=== PATIENT | male | born 1990 | race Caucasian/White ===

== ENCOUNTER 2017-03-15 01:45 | Emergency (ER) | payer MEDICAID ==
[2017-03-15 01:56] VITALS: BP 127/54
[2017-03-15] MEDS ORDERED: LANTUS SOLOS100 U/M1 SQ (02:48)
[2017-03-15 02:52] LABS: BASOPHIL % 0.5 % (0-2); PLATELET COUNT 361 x10^3mcL (130-400); RED CELL DISTRIBUTION WIDTH 12.9 % (11.5-14.5)
[2017-03-15 03:04] LABS: ALBUMIN 3.8 g/dL (3.4-5.0); ALKALINE PHOSPHATASE 83 U/L (46-116); ALT/SGPT 36 U/L (16-63); AST/SGOT 25 U/L (15-37); BILIRUBIN TOTAL 2.5 mg/dL (0.20-1.00); CALCIUM 8.9 mg/dL (8.5-10.1); CHLORIDE SERUM 93 mmol/L (98-107); CREATININE SERUM 1.5 mg/dL (0.7-1.3); GFR1 > 60 mL/min; POTASSIUM SERUM 4.8 mmol/L (3.5-5.1); SODIUM SERUM 133 mmol/L (136-145); TOTAL PROTEIN, SERUM 7.1 g/dL (6.4-8.2)
[2017-03-15 03:06] LABS: GLUCOSE SERUM 621 mg/dL (74-106)
== END 2017-03-15 03:20 | disposition left against medical advice (07) ==
LOC: ED 01:45
PROVIDERS: Emergency Medicine
DX: F15.10 Other stimulant abuse, uncomplicated (principal); E11.65 Type 2 diabetes mellitus with hyperglycemia; F17.210 Nicotine dependence, cigarettes, uncomplicated; Z71.6 Tobacco abuse counseling
CPT/HCPCS: 82962; 99406; J2060; J7030; Q0092

== ENCOUNTER 2017-03-15 07:13 | Inpatient (IN) | payer MEDICAID ==
[~2017-03-15] VITALS: Ht 180.3 cm; Wt 86.7 kg
[~2017-03-15 07:13] MED LIST: LANTUS SOLOS100 U/M1 SQ
--- NOTE | 2017-03-15 08:13 | NUR ---
PT BIB MEDICS DUE TO HIGH BG. MEDICS STATE PATIENT REPORTED BG IN 500'S YESTERDAY AND READ "HIGH" ON GLUCOMETER IN ROUTE. MEDICS STATE PT SMOKED METH AND MARIJUANA LAST NIGHT AND [place] [facility] STATING HE "DID NOT RECIEVE PROPER CARE". 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 PT C/O GEN WEAKNESS AND MUSCLE ACHES AND STATES HE HAS NOT TAKEN HIS INSULIN IN PAST 2 DAYS. PT ARRIVED IN [place] RESPIRATIONS WITH FRUITY BREATH. PT APPEARS DROWSY, AAOX4. DR. ROD AT BEDSIDE FOR MSE. PT STARTED ON IVF PER MD ORDER. WILL CONTINUE TO MONITOR.
[2017-03-15 08:14] LABS: BASOPHIL % 1.2 % (0-2); PLATELET COUNT 365 x10^3mcL (130-400); RED CELL DISTRIBUTION WIDTH 13.4 % (11.5-14.5)
[2017-03-15 08:18] LABS: microscopic required? NO
[2017-03-15 08:19] LABS: ALBUMIN 4.4 g/dL (3.4-5.0); ALKALINE PHOSPHATASE 92 U/L (46-116); ALT/SGPT 40 U/L (16-63); AST/SGOT 29 U/L (15-37); BILIRUBIN TOTAL 2.94 mg/dL (0.20-1.00); CALCIUM 9.6 mg/dL (8.5-10.1); CARBON DIOXIDE 17.8 mmol/L (21-32); CHLORIDE SERUM 91 mmol/L (98-107); CK-MB 5.1 ng/mL (0-3.6); CREATININE SERUM 1.4 mg/dL (0.7-1.3); GFR1 > 60 mL/min; POTASSIUM SERUM 5.3 mmol/L (3.5-5.1); SODIUM SERUM 131 mmol/L (136-145)
[2017-03-15 08:20] LABS: FREE T4 1.12 ng/dL (0.76-1.46); FREE THYROXINE INDEX 2.8 ug/dL (1.4-4.5); T3 TOTAL 0.7 ng/mL; T4(THYROXINE) 8.6 ug/dL (4.7-13.3)
[2017-03-15 08:26] LABS: GLUCOSE SERUM 622 mg/dL (74-106)
--- NOTE | 2017-03-15 08:36 | NUR ---
PT RESTING ON GURNEY IN NO ACUTE DISTRESS.
[2017-03-15 08:39] LABS: UA SPECIFIC GRAVITY 1.015 (1.005-1.035); urine erythrocyte NEGATIVE (NEGATIVE)
[2017-03-15 08:41] LABS: C REACTIVE PROTEIN < 0.2 mg/dL (<=0.9)
[2017-03-15 09:01] LABS: AMPHETAMINE QUAL UR POSITIVE (NEG <=1000)
--- NOTE | 2017-03-15 09:08 | NUR ---
PT ANXIOUS C/O CP. NOTIFIED AND REPEAT EKG COMPLETED BY POSTING CLERK. PT GIVEN ATIVAN BY DEEJAY NAVARRO PER MD ORDER.
[2017-03-15 09:26] LABS: ERYTHROCYTE SED RATE 13 mm/hr (0-15)
--- NOTE | 2017-03-15 09:28 | NUR ---
PT VERY DROWSEY, AROUSABLE TO VERBAL STIMULI BUT NOT RESPONDING TO QUESTIONS. EYES OPENING. TRYING TO OBTAIN MED REC AND PERSONAL BELONGINGS BUT UNABLE TO AT THIS TIME. BG RECHECKED, B. PT HAD RECEIVED 2MG ATIVAN IVP.
--- NOTE | 2017-03-15 09:41 | NUR ---
REPORT GIVEN TO DEEJAY OLIVER IN ICU TO ASSUME CARE.
--- NOTE | 2017-03-15 09:50 | NUR ---
PT ARRIVED ON UNIT FROM ER ON GURNEY ACCOMPANIED BY RNS AND INSTRUMENTATION INSTRUCTOR. PT IS DROWSY AT THIS TIME. PT IS ORIENTED TO PERSON BUT QUICKLY FALLS BACK ASLEEP. DOES NOT FOLLOW COMMANDS AT THIS TIME. PUPILS ARE 3MM SLUGGISH BILATERALLY. EENT FREE OF DISCHARGE. PT NOTED TO HAVE KUSSUMAL BREATHING W/ BREATH SMELLING LIKE ACETONE. LUNG SOUNDS ARE CLEAR BILATERALLY. S1 S2 HEART SOUNDS AUSCULTATED. SINUS TACH, HR = 102. PULSES ARE STRONG X4. CAP REFILL < 3 S. SKIN IS WARM AND PINK. NO EDEMA NOTED. ABD IS SOFT AND FLAT. BOWEL SOUNDS ACTIVE X4Q. PT VOIDS FREELY. 22 GA IV TO R HAND AND 20 GA IV TO L HAND, IVS BOTH INTACT, PATENT, DRESSINGS CDI. PT RECEIVED WITH INSULIN INFUSING @ 7 UNITS/HR AND MAG RIDER @ 25 CC/HR. PT DENIES PAIN AT THIS TIME. HOB ELEVATED, BED LOW, SIDE RAILS UP X3, CALL LIGHT IN REACH. WILL CONTINUE TO MONITOR.
[2017-03-15 10:13] LABS: MAGNESIUM 2.2 mg/dL (1.8-2.4); PHOSPHOROUS 3.8 mg/dL (2.5-4.9)
--- NOTE | 2017-03-15 11:30 | NUR ---
DR PATRICIO AT BEDSIDE WITH US TECHS TO PERFORM CENTRAL LINE PLACEMENT. TIMEOUT COMPLETED WITH TEAM IN AGREEMENT.
--- NOTE | 2017-03-15 11:48 | NUR ---
R IJ CVC PLACED SUCCESSFULLY BY DR PATRICIO. XRAY CALLED AT THIS TIME.
[2017-03-15 11:49] VITALS: BP 116/51
[2017-03-15 12:00] VITALS: BP 122/60
[2017-03-15 12:52] LABS: CALCIUM 8.1 mg/dL (8.5-10.1); CARBON DIOXIDE 23.2 mmol/L (21-32); CHLORIDE SERUM 106 mmol/L (98-107); CREATININE SERUM 1.2 mg/dL (0.7-1.3); GFR1 > 60 mL/min; GLUCOSE SERUM 231 mg/dL (74-106); MAGNESIUM 2.5 mg/dL (1.8-2.4); PHOSPHOROUS 3.3 mg/dL (2.5-4.9); POTASSIUM SERUM 3.8 mmol/L (3.5-5.1); SODIUM SERUM 139 mmol/L (136-145)
--- NOTE | 2017-03-15 13:00 | NUR ---
PT PULLED OUT R HAND IV.
--- NOTE | 2017-03-15 13:00 | NUR ---
PT PUT IN BILATERAL SOFT WRIST RESTRAINTS D/T RISK OF INJURY TO SELF W/ CENTRAL LINE PLACED. PT SHENG MADE AWARE.
--- NOTE | 2017-03-15 13:20 | NUR ---
ECHOCARDIOGRAM PENDING PATIENT AGITATED
--- NOTE | 2017-03-15 13:42 | NUR ---
IV FLUIDS CHANGED TO D5-1/2NS @ 200 CC/HR. INSULIN TITRATED TO 0.05 UNITS/KG PER DKA PROTOCOL.
[2017-03-15 16:00] VITALS: BP 116/61
--- NOTE | 2017-03-15 16:07 | NUR ---
GAP CLOSED X 2.
[2017-03-15 16:25] LABS: CALCIUM 7.8 mg/dL (8.5-10.1); CARBON DIOXIDE 25.2 mmol/L (21-32); CHLORIDE SERUM 106 mmol/L (98-107); GFR1 > 60 mL/min; GLUCOSE SERUM 168 mg/dL (74-106); MAGNESIUM 2.1 mg/dL (1.8-2.4); PHOSPHOROUS 3.7 mg/dL (2.5-4.9); SODIUM SERUM 139 mmol/L (136-145)
--- NOTE | 2017-03-15 18:06 | NUR ---
INSULIN D/C'D PER ORDER. D5-1/2NS ADJUSTED TO 100 CC/HR.
--- NOTE | 2017-03-15 18:09 | NUR ---
RAN VENOUS BLOOD AN ARTERIAL BY MISTAKE,RAN AGAIN VENOUS.
[2017-03-15 20:00] VITALS: BP 120/74
--- NOTE | 2017-03-15 20:00 | NUR ---
PATIENT RECEIVED DROWSY BUT AROUSABLE TO TACTILE STIMULI, NOT FOLLOWING COMMANDS. RESPIRATION EVEN AND UNLABORED, ON ROOM AIR. ONGOING D5 1/2 NS AT 100 CC/HR INFUSING WELL AT THE R IJ TLC. ON BILATERAL SOFT WRIST RESTRAINTS FOR SAFETY, PATIENT PULLED IV SITE EARLIER. LATEST BLOOD SUGAR 142 MG/DL. NOTED SCAR TO RIGHT NECK, SKIN IRRITATION TO L FLANK AND ROUND BUMP TO R POSTERIOR HEAD. WILL CONTINUE TO MONITOR.
[2017-03-15 21:18] LABS: CARBON DIOXIDE 23.9 mmol/L (21-32); CHLORIDE SERUM 105 mmol/L (98-107); GFR1 > 60 mL/min; GLUCOSE SERUM 199 mg/dL (74-106); PHOSPHOROUS 4.1 mg/dL (2.5-4.9); POTASSIUM SERUM 4.6 mmol/L (3.5-5.1); SODIUM SERUM 138 mmol/L (136-145)
--- NOTE | 2017-03-16 | NUR ---
PATIENT REMAINS TO BE DROWSY BUT ABLE TO MADE NEEDS KNOWN. HE SCREAMED EARLIER BECAUSE HE NEEDS TO URINATE. AFTER USING THE URINAL HE WENT BACK TO SLEEP. RESPIRATION EVEN AND UNLABORED, ON ROOM AIR. HE WAS ALSO GIVEN TORADOL 30 MG IVP ORDERED FOR PAIN. HE VERBALIZED DISCOMFORT ON THE CENTRAL LINE SITE. WILL CONTINUE TO MONITOR.
[2017-03-16 00:40] LABS: CALCIUM 8.1 mg/dL (8.5-10.1); CARBON DIOXIDE 20.7 mmol/L (21-32); CHLORIDE SERUM 103 mmol/L (98-107); CREATININE SERUM 1.1 mg/dL (0.7-1.3); GFR1 > 60 mL/min; GLUCOSE SERUM 330 mg/dL (74-106); MAGNESIUM 1.8 mg/dL (1.8-2.4); PHOSPHOROUS 3.3 mg/dL (2.5-4.9); POTASSIUM SERUM 4.6 mmol/L (3.5-5.1); SODIUM SERUM 135 mmol/L (136-145)
--- NOTE | 2017-03-16 01:08 | NUR ---
PATIENT FOR TRANSFER TO [address] [place] [address]. REPORT GIVEN TO RECEIVING RN.
--- NOTE | 2017-03-16 01:54 | NUR ---
PATIENT ARRIVED TO UNIT VIA GUERNEY FROM ICU. PATIENT AWAKEABLE AND FOLLOWS COMMANDS. CURRENTLY REFUSING TO ANSWER QUESTIONS DUE TO WANTING TO SLEEP AT THIS TIME. CURRENTLY ON 2 POINT SOFT WRIST RESTRAINTS. CIRCULATION WNL TO BUE. STRONG POSITIVE PULSES. CALL LIGHT WITHIN REACH. ALL OTHER SAFETY MEASURES IN PLACE.
[2017-03-16 01:56] VITALS: BP 100/59
[2017-03-16 04:13] VITALS: Ht 180.3 cm; Wt 86.7 kg
[2017-03-16 05:47] LABS: CALCIUM 7.8 mg/dL (8.5-10.1); CARBON DIOXIDE 23.4 mmol/L (21-32); CHLORIDE SERUM 107 mmol/L (98-107); CREATININE SERUM 0.9 mg/dL (0.7-1.3); GFR1 > 60 mL/min; GLUCOSE SERUM 183 mg/dL (74-106); MAGNESIUM 1.9 mg/dL (1.8-2.4); PHOSPHOROUS 2.3 mg/dL (2.5-4.9); POTASSIUM SERUM 3.8 mmol/L (3.5-5.1); SODIUM SERUM 138 mmol/L (136-145)
[2017-03-16 06:01] VITALS: BP 118/75
--- NOTE | 2017-03-16 07:25 | NUR ---
RECEIVED Pt. DROWSY ORIENTED X 4, RESPIRATIONS EVEN UNLABORED RA. DENIES PAIN/DISCOMFORT NO DISTRESS NOTED. TELE IN PLACE HR 70 NSR. IVF RUNNING TO CENTRAL LINE RIJ ALL PORTS FLUSHES WELL. ON MARY. WRIST RESTRAINTS DUE TO TRIES TO PULL OUT CENTRAL LINE. BED LOW/LOCKED. CALL LIGHT IN REACH. WILL CONTINUE TO MONITOR.
[2017-03-16 09:03] LABS: CALCIUM 7.8 mg/dL (8.5-10.1); CARBON DIOXIDE 23.1 mmol/L (21-32); CHLORIDE SERUM 107 mmol/L (98-107); CREATININE SERUM 0.9 mg/dL (0.7-1.3); GFR1 > 60 mL/min; GLUCOSE SERUM 129 mg/dL (74-106); MAGNESIUM 1.7 mg/dL (1.8-2.4); PHOSPHOROUS 2.7 mg/dL (2.5-4.9); POTASSIUM SERUM 3.9 mmol/L (3.5-5.1); SODIUM SERUM 140 mmol/L (136-145)
[2017-03-16 09:12] VITALS: BP 105/73
--- NOTE | 2017-03-16 09:30 | NUR ---
Pt. MORE AWAKE AND ORIENTED X 4 COOPERATIVE AT THIS TIME BILATERAL SOFT WRIST RESTRAINT REMOVED. Pt. INSTRUCTED NOT TO PULL OUT LINES AND VERBALIZED UNDERSTANDING.
--- NOTE | 2017-03-16 10:00 | NUR ---
Pt. C/O ANXIETY ATIVAN 1 MG ADMINISTERED WILL CONTINUE TO MONITOR.
[2017-03-16 12:21] LABS: CALCIUM 7.9 mg/dL (8.5-10.1); CARBON DIOXIDE 22.9 mmol/L (21-32); CHLORIDE SERUM 102 mmol/L (98-107); CREATININE SERUM 1.1 mg/dL (0.7-1.3); GFR1 > 60 mL/min; GLUCOSE SERUM 356 mg/dL (74-106); MAGNESIUM 1.6 mg/dL (1.8-2.4); PHOSPHOROUS 3.1 mg/dL (2.5-4.9); POTASSIUM SERUM 4.4 mmol/L (3.5-5.1); SODIUM SERUM 136 mmol/L (136-145)
--- NOTE | 2017-03-16 12:31 | NUR ---
MAGNESIUM LEVEL 1.[address] MACK
--- NOTE | 2017-03-16 12:53 | NUR ---
Pt. CALM AND COOPERATIVE DENIES ANXIETY AT THIS TIME. EATING LUNCH TRAY TOLERATED DIET WELL.
[2017-03-16 13:44] VITALS: BP 116/79
[2017-03-16 16:21] VITALS: BP 105/68
[2017-03-16 16:26] LABS: CALCIUM 7.7 mg/dL (8.5-10.1); CARBON DIOXIDE 24.9 mmol/L (21-32); CHLORIDE SERUM 102 mmol/L (98-107); CREATININE SERUM 1.2 mg/dL (0.7-1.3); GFR1 > 60 mL/min; GLUCOSE SERUM 395 mg/dL (74-106); MAGNESIUM 1.7 mg/dL (1.8-2.4); PHOSPHOROUS 2.2 mg/dL (2.5-4.9); POTASSIUM SERUM 4.4 mmol/L (3.5-5.1); SODIUM SERUM 133 mmol/L (136-145)
--- NOTE | 2017-03-16 18:25 | NUR ---
Pt. AAOX4, RESPIRATIONS EVEN AND UNLABORED RA DENIES PAIN AT THIS TIME. TELE IN PLACE. IVF RUNNING TO IV LEFT HAND. Pt. C/O DISCOMFORT WITH CENTRAL LINE RIGHT IJ SALINE LOCKED ALL PORTS FLUSHES WELL. DSG CDI. BED LOW/LOCKED CALL LIGHT IN REACH.
--- NOTE | 2017-03-16 19:30 | NUR ---
RECEIVED PATIENT BACK FROM AM [facility]. PATIENT QUIETLY RESTING IN BED. NO S/SX OF DISTRESS NOTED. IVF INFUSING TO RIGHT HAND AT 120ML/HR NS. NO INFILTRATION NOTED. TELE 21 SR. CALL LIGHT WITHIN REACH.
[2017-03-16 20:46] VITALS: BP 117/72
--- NOTE | 2017-03-17 | NUR ---
SAFETY ROUNDS MADE, PATIENT QUIETLY RESTING IN BED. NO S/SX OF DISTRESS NOTED. ALL NEEDS MET AT THIS TIME. PATIENT SOMETIMES SHOWS EPISODES OF FRUSTATION BUT NONE AT THIS TIME. IVF CONTINUE TO INFUSE TO RIGHT HAND AT 120ML/HR NS. CALL LIGHT WITHIN REACH AND ALL NEEDS MET.
--- NOTE | 2017-03-17 00:13 | NUR ---
PER DR. MUKHERJEE. YESI TO NOT GIVE COVERAGE FOR 155 ACCUCHECK DUE TO PATIENT NPO AT THIS TIME.
--- NOTE | 2017-03-17 00:21 | NUR ---
VERBAL ORDER FROM DR MUKHERJEE TO DC VBG ORDERS.
[2017-03-17 05:25] VITALS: BP 124/85
--- NOTE | 2017-03-17 05:37 | NUR ---
PATIENT ASKING WHEN HE IS ABLE TO GET DISCHARGED. INFORMED PATIENT OF SITUATION AND NEED FOR HOSPITALIZATION. PATIENT STATES THAT HE DOES NOT UNDERSTAND WHY WE ARE KEEPING HIM HERE. ENCOURAGED PATIENT TO SPEAK TO DOCTORS IN THE MORNING REGARDING PLAN OF CARE.
[2017-03-17 06:09] LABS: BASOPHIL % 0.9 % (0-2); PLATELET COUNT 288 x10^3mcL (130-400); RED CELL DISTRIBUTION WIDTH 13.1 % (11.5-14.5)
[2017-03-17 06:29] LABS: CALCIUM 7.9 mg/dL (8.5-10.1); CARBON DIOXIDE 28.4 mmol/L (21-32); CHLORIDE SERUM 108 mmol/L (98-107); CREATININE SERUM 0.9 mg/dL (0.7-1.3); GFR1 > 60 mL/min; GLUCOSE SERUM 91 mg/dL (74-106); MAGNESIUM 2.1 mg/dL (1.8-2.4); POTASSIUM SERUM 3.6 mmol/L (3.5-5.1); SODIUM SERUM 141 mmol/L (136-145)
--- NOTE | 2017-03-17 07:15 | NUR ---
RECEIVED PATIENT ASLEEP; SNORING NOTED NOO DISTRESS NOTED. AROUSABLE AND DROWSY NOTED; PATIENT DRIFT BACK TO SLEEP AFTER ASSESSMENT. KEEP NPO FOR US ABDOMEN ORDERED. RIJ INTACT AND INFUSING NS @ 120ML/HR; LH SALINE LOCK. CALL LIGHT WITHIN REACH. CONT TO MONITOR.
--- NOTE | 2017-03-17 08:15 | NUR ---
PATIENT AWAKE, SCREAMING, AND CUSSING DID NOT WANT TO HEAR THE NURSE ORIENTED TO PLACE; PATIENT STATE WHY I'M HERE AND CAN'T HOLD ME HERE. INFORM PATIENT WILL CALL DOCTOR TO DISCHARGE PATIENT BUT PATIENT DIDN'T WANT TO HERE; PATIENT THREAT RIPPED OUT RIJ; SECURITY WAS CALL. PATIENT CALM DOWN A BIT; ALLOW NURSE TO REMOVED CENTRAL LINE TO RT NECK AND LH IV DRESSING IN PLACE NO BLEEDING NOTED. DR. BLANCAS WAS HERE IN THE ROOM AND AWARE PATIENT LEAVE AMA. PATIENT REQUEST FOR PRESCRIPTION BUT REFUSED TO WAIT FOR DOCTOR. DISPOSAL PANT/SHIRT GIVEN PER REQUEST. SECURITY STAND BY TO ESCORT PATIENT OUT.
--- NOTE | 2017-03-17 08:50 | NUR ---
PATIENT READY TO WHEEL OUT; FOOS OFFERED PER REQUEST; MASH FILTER CLOTH CHANGER ASSIST WHEEL PATIENT OFF FLOOR WITH SECURITY ACCOMPANIED.
== END 2017-03-17 08:52 | disposition left against medical advice (07) | DRG 420 ==
LOC: ED 07:13 → DU 09:16 → IC 09:16 → DU 03-16 01:33
PROVIDERS: Family Medicine; Specialist; ADMIT Family Medicine
PROC: 05HM33Z Insertion of Infusion Device into Right Internal Jugular Vein, Percutaneous Approach (ICD-10-PCS; principal; 2017-03-17)
PROC: B543ZZA Ultrasonography of Right Jugular Veins, Guidance (ICD-10-PCS; 2017-03-17)
DX: E10.10 Type 1 diabetes mellitus with ketoacidosis without coma (principal); N17.0 Acute kidney failure with tubular necrosis; E87.5 Hyperkalemia; E87.8 Other disorders of electrolyte and fluid balance, not elsewhere classified; D68.69 Other thrombophilia; E87.1 Hypo-osmolality and hyponatremia; F15.10 Other stimulant abuse, uncomplicated; E66.3 Overweight; Z79.4 Long term (current) use of insulin; Z68.25 Body mass index [BMI] 25.0-25.9, adult; Z91.14 Patient's other noncompliance with medication regimen
CPT/HCPCS: 36556; 36600; 82962; 83880; 84439; G0480; J1170; J1642; J1815; J1885; J2060; J3475; J3490; J7030; J7040; Q0092

== ENCOUNTER 2017-05-03 00:47 | Emergency (ER) | payer MEDICAID ==
[2017-05-03 02:05] VITALS: BP 140/98
== END 2017-05-03 02:05 | disposition home or self-care (01) ==
LOC: ED 00:47
DX: S90.821A Blister (nonthermal), right foot, initial encounter (principal); E11.9 Type 2 diabetes mellitus without complications; L03.031 Cellulitis of right toe; Z79.4 Long term (current) use of insulin; X58.XXXA Exposure to other specified factors, initial encounter; Y93.89 Activity, other specified; Y99.8 Other external cause status; Y92.89 Other specified places as the place of occurrence of the external cause

== ENCOUNTER 2017-05-20 22:32 | Emergency (ER) | payer MEDICAID ==
[~2017-05-20] VITALS: Ht 180.3 cm; Wt 93.0 kg
[2017-05-20 22:40] VITALS: Ht 180.3 cm; Wt 93.0 kg
[2017-05-21 00:16] LABS: BASOPHIL % 0.8 % (0-2); PLATELET COUNT 397 x10^3mcL (130-400); RED CELL DISTRIBUTION WIDTH 12.6 % (11.5-14.5)
[2017-05-21 00:26] LABS: CALCIUM 8.6 mg/dL (8.5-10.1); CARBON DIOXIDE 27.1 mmol/L (21-32); CHLORIDE SERUM 101 mmol/L (98-107); CREATININE SERUM 1.1 mg/dL (0.7-1.3); GFR1 > 60 mL/min; GLUCOSE SERUM 373 mg/dL (74-106); POTASSIUM SERUM 4.1 mmol/L (3.5-5.1); SODIUM SERUM 137 mmol/L (136-145)
[2017-05-21 00:31] LABS: ALBUMIN 3.5 g/dL (3.4-5.0); ALKALINE PHOSPHATASE 88 U/L (46-116); ALT/SGPT 43 U/L (16-63); AMYLASE 53 U/L (25-115); AST/SGOT 30 U/L (15-37); BILIRUBIN TOTAL 0.6 mg/dL (0.20-1.00); CHOLESTEROL 170 mg/dL (<200); LIPASE 185 IU/L (73-393)
[2017-05-21 00:32] LABS: HDL CHOLESTEROL 75 mg/dL (40-60)
[2017-05-21] MEDS ORDERED: LANTUS SOLOS100 U/M1 SQ (00:38)
[2017-05-21] MEDS ORDERED: HUMALOG100 U/ML (00:38)
[2017-05-21 03:10] LABS: microscopic required? NO
[2017-05-21 03:30] LABS: UA SPECIFIC GRAVITY 1.015 (1.005-1.035); urine erythrocyte NEGATIVE (NEGATIVE)
[2017-05-21 03:32] VITALS: BP 116/74
[2017-05-21 03:50] LABS: AMPHETAMINE QUAL UR POSITIVE (NEG <=1000)
== END 2017-05-21 03:32 | disposition home or self-care (01) ==
LOC: ED 22:32
PROVIDERS: Emergency Medicine
DX: E11.8 Type 2 diabetes mellitus with unspecified complications (principal); R11.10 Vomiting, unspecified; I10 Essential (primary) hypertension; Z59.0 Homelessness
CPT/HCPCS: 83880; J1815; J7030

== ENCOUNTER 2017-09-02 19:10 | Emergency (ER) | payer MEDICAID ==
[~2017-09-02] VITALS: Ht 180.3 cm; Wt 90.7 kg
[~2017-09-02 19:10] MED LIST changes: +HUMALOG100 U/ML
[2017-09-02 19:14] VITALS: Ht 180.3 cm; Wt 90.7 kg
[2017-09-02 20:21] LABS: CALCIUM 9.5 mg/dL (8.5-10.1); CARBON DIOXIDE 30.3 mmol/L (21-32); CREATININE SERUM 1.7 mg/dL (0.7-1.3); POTASSIUM SERUM 4.1 mmol/L (3.5-5.1)
[2017-09-02 23:18] VITALS: BP 124/66
== END 2017-09-02 23:18 | disposition other institution (70) ==
LOC: ED 19:10
PROVIDERS: Emergency Medicine
DX: E11.65 Type 2 diabetes mellitus with hyperglycemia (principal); I10 Essential (primary) hypertension
CPT/HCPCS: J1815; J7030

== ENCOUNTER 2017-09-02 19:10 | Emergency (ER) | payer OTHER | END 2017-09-02 23:18 | disposition other institution (70) | LOC: ED 19:10 | DX: Z02.89 Encounter for other administrative examinations (principal) ==

== ENCOUNTER 2017-09-12 11:35 | Emergency (ER) | payer MEDICAID ==
[~2017-09-12] VITALS: Ht 180.3 cm; Wt 88.5 kg
[2017-09-12 11:37] VITALS: BP 143/95; Ht 180.3 cm; Wt 88.5 kg
[2017-09-12 12:20] LABS: BASOPHIL % 0.4 % (0-2); RED CELL DISTRIBUTION WIDTH 13.5 % (11.5-14.5)
[2017-09-12 12:27] LABS: PLATELET COUNT 428 x10^3mcL (130-400)
[2017-09-12 12:29] LABS: CALCIUM 9.5 mg/dL (8.5-10.1); CARBON DIOXIDE 33.5 mmol/L (21-32); CHLORIDE SERUM 93 mmol/L (98-107); CREATININE SERUM 1.4 mg/dL (0.7-1.3); GFR1 > 60 mL/min; POTASSIUM SERUM 3.3 mmol/L (3.5-5.1); SODIUM SERUM 136 mmol/L (136-145)
[2017-09-12 12:31] LABS: GLUCOSE SERUM 477 mg/dL (74-106)
== END 2017-09-12 12:49 | disposition left against medical advice (07) ==
LOC: ED 11:35
PROVIDERS: Emergency Medicine
DX: E10.65 Type 1 diabetes mellitus with hyperglycemia (principal); F32.9 Major depressive disorder, single episode, unspecified; Z79.4 Long term (current) use of insulin
CPT/HCPCS: 36415; J1815; J7030

== ENCOUNTER 2017-10-20 00:24 | Emergency (ER) | payer MEDICAID ==
[~2017-10-20] VITALS: Ht 180.3 cm; Wt 79.0 kg
[2017-10-20 00:44] VITALS: Ht 180.3 cm; Wt 79.0 kg
[2017-10-20 01:29] VITALS: BP 132/76
== END 2017-10-20 01:29 | disposition home or self-care (01) ==
LOC: ED 00:24
DX: H60.11 Cellulitis of right external ear (principal); E11.65 Type 2 diabetes mellitus with hyperglycemia

== ENCOUNTER 2018-01-20 17:46 | Emergency (ER) | payer MEDICAID ==
[~2018-01-20] VITALS: Ht 180.3 cm; Wt 85.7 kg
[2018-01-20 17:56] VITALS: Ht 180.3 cm; Wt 85.7 kg
[2018-01-20 18:40] LABS: BASOPHIL % 0.6 % (0-2); PLATELET COUNT 435 x10^3mcL (130-400)
[2018-01-20 19:24] LABS: CALCIUM 9.3 mg/dL (8.5-10.1); CARBON DIOXIDE 26.1 mmol/L (21-32); CHLORIDE SERUM 91 mmol/L (98-107); CREATININE SERUM 1.3 mg/dL (0.7-1.3); GFR1 > 60 mL/min; GLUCOSE SERUM 440 mg/dL (74-106); POTASSIUM SERUM 3.8 mmol/L (3.5-5.1); SODIUM SERUM 129 mmol/L (136-145)
[2018-01-20 19:28] LABS: ALBUMIN 3.9 g/dL (3.4-5.0); ALKALINE PHOSPHATASE 109 U/L (46-116); ALT/SGPT 94 U/L (16-63); AST/SGOT 131 U/L (15-37); BILIRUBIN TOTAL 0.7 mg/dL (0.20-1.00); LIPASE 210 IU/L (73-393); TOTAL PROTEIN, SERUM 7.5 g/dL (6.4-8.2)
[2018-01-21 01:36] LABS: AMPHETAMINE QUAL UR NONE DETECTED (See below)
[2018-01-21 13:26] LABS: MAGNESIUM 2.1 mg/dL (1.8-2.4); PHOSPHOROUS 4.5 mg/dL (2.5-4.9)
[2018-01-21 13:40] LABS: T3 TOTAL 0.6 ng/mL
[2018-01-21 13:59] LABS: FREE T4 0.79 ng/dL (0.76-1.46); FREE THYROXINE INDEX 1.6 ug/dL (1.4-4.5); T4(THYROXINE) 5.1 ug/dL (4.7-13.3)
[2018-01-21 17:43] VITALS: BP 118/90
== END 2018-01-21 17:43 ==
LOC: ED 17:46 → MU 01-21 11:16 → ED 01-21 17:43
PROVIDERS: Emergency Medicine; Internal Medicine
DX: E11.65 Type 2 diabetes mellitus with hyperglycemia (principal); R45.851 Suicidal ideations
CPT/HCPCS: 84439; G0480; J1815; J2405; J7030; Q0092

== ENCOUNTER 2018-02-05 04:46 | Emergency (ER) | payer MEDICAID ==
[~2018-02-05] VITALS: Ht 180.3 cm; Wt 82.6 kg
[2018-02-05 04:53] VITALS: Ht 180.3 cm; Wt 82.6 kg
[2018-02-05 05:25] LABS: BASOPHIL % 0.8 % (0-2)
[2018-02-05 05:27] LABS: PLATELET COUNT 415 x10^3mcL (130-400)
[2018-02-05 05:53] LABS: BILIRUBIN TOTAL 1.32 mg/dL (0.20-1.00); CALCIUM 9.3 mg/dL (8.5-10.1); CARBON DIOXIDE 17.4 mmol/L (21-32); CREATININE SERUM 1.6 mg/dL (0.7-1.3); TOTAL PROTEIN, SERUM 8.2 g/dL (6.4-8.2)
[2018-02-05 06:06] LABS: microscopic required? NO
[2018-02-05 06:06] LABS: POTASSIUM SERUM 5.6 mmol/L (3.5-5.1)
[2018-02-05 06:31] LABS: UA SPECIFIC GRAVITY <=1.005 (1.005-1.035); urine erythrocyte NEGATIVE (NEGATIVE)
[2018-02-05] MEDS ORDERED: NEU300 PO (06:32)
[2018-02-05 07:10] LABS: AMPHETAMINE QUAL UR POSITIVE (See below)
[2018-02-05 07:22] VITALS: BP 152/83
== END 2018-02-05 08:14 | disposition left against medical advice (07) ==
LOC: ED 04:46
PROVIDERS: Emergency Medicine
DX: E11.10 Type 2 diabetes mellitus with ketoacidosis without coma (principal); F15.10 Other stimulant abuse, uncomplicated; R51 Headache; H53.8 Other visual disturbances; R11.0 Nausea; Z90.89 Acquired absence of other organs
CPT/HCPCS: 36600; 82962; J1815; J2405; J3490; J7030; Q0092

== ENCOUNTER 2018-04-10 11:49 | Inpatient (IN) | payer MEDICAID ==
[~2018-04-10] VITALS: Ht 180.3 cm; Wt 81.2 kg
[~2018-04-10 11:49] MED LIST changes: +NEU300 PO
[2018-04-10 11:50] VITALS: Ht 180.3 cm; Wt 81.2 kg
[2018-04-10 12:37] LABS: ALBUMIN 4.6 g/dL (3.4-5.0); BASOPHIL % 1.2 % (0-2); BILIRUBIN TOTAL 1.1 mg/dL (0.20-1.00); CALCIUM 9.4 mg/dL (8.5-10.1); CARBON DIOXIDE 12.6 mmol/L (21-32); CREATININE SERUM 1.6 mg/dL (0.7-1.3); PLATELET COUNT 486 x10^3mcL (130-400); POTASSIUM SERUM 5.2 mmol/L (3.5-5.1); RED CELL DISTRIBUTION WIDTH 15.4 % (11.5-14.5)
[2018-04-10 12:42] LABS: TOTAL PROTEIN, SERUM 9.1 g/dL (6.4-8.2)
[2018-04-10 13:53] LABS: microscopic required? NO
[2018-04-10 14:06] LABS: urine erythrocyte NEGATIVE (NEGATIVE)
[2018-04-10 14:31] VITALS: BP 141/84
[2018-04-10 14:43] LABS: AMPHETAMINE QUAL UR POSITIVE (See below)
[2018-04-10 16:39] LABS: CALCIUM 7.6 mg/dL (8.5-10.1); CHLORIDE SERUM 108 mmol/L (98-107); CREATININE SERUM 1.1 mg/dL (0.7-1.3); GFR1 > 60 mL/min; GLUCOSE SERUM 147 mg/dL (74-106); MAGNESIUM 2.1 mg/dL (1.8-2.4); PHOSPHOROUS 3.3 mg/dL (2.5-4.9); POTASSIUM SERUM 4.1 mmol/L (3.5-5.1); SODIUM SERUM 142 mmol/L (136-145)
[2018-04-10 20:10] VITALS: BP 137/83
[2018-04-10 20:28] LABS: CALCIUM 7.5 mg/dL (8.5-10.1); CARBON DIOXIDE 27.8 mmol/L (21-32); CHLORIDE SERUM 109 mmol/L (98-107); CREATININE SERUM 1.2 mg/dL (0.7-1.3); GFR1 > 60 mL/min; GLUCOSE SERUM 116 mg/dL (74-106); MAGNESIUM 1.9 mg/dL (1.8-2.4); PHOSPHOROUS 2.9 mg/dL (2.5-4.9); POTASSIUM SERUM 4.1 mmol/L (3.5-5.1); SODIUM SERUM 140 mmol/L (136-145)
[2018-04-11 00:08] VITALS: BP 129/80
[2018-04-11 01:21] LABS: CALCIUM 8.2 mg/dL (8.5-10.1); CARBON DIOXIDE 21.1 mmol/L (21-32); CHLORIDE SERUM 106 mmol/L (98-107); GFR1 > 60 mL/min; GLUCOSE SERUM 113 mg/dL (74-106); PHOSPHOROUS 3.2 mg/dL (2.5-4.9); POTASSIUM SERUM 3.5 mmol/L (3.5-5.1); SODIUM SERUM 139 mmol/L (136-145)
[2018-04-11 04:25] VITALS: BP 132/73
[2018-04-11 05:41] LABS: BASOPHIL % 0.8 % (0-2)
[2018-04-11 05:42] LABS: PLATELET COUNT 410 x10^3mcL (130-400); RED CELL DISTRIBUTION WIDTH 15.1 % (11.5-14.5)
[2018-04-11 06:01] LABS: CALCIUM 7.7 mg/dL (8.5-10.1); CHLORIDE SERUM 106 mmol/L (98-107); CREATININE SERUM 1.1 mg/dL (0.7-1.3); GFR1 > 60 mL/min; GLUCOSE SERUM 358 mg/dL (74-106); MAGNESIUM 1.8 mg/dL (1.8-2.4); PHOSPHOROUS 3.1 mg/dL (2.5-4.9); POTASSIUM SERUM 4.2 mmol/L (3.5-5.1); SODIUM SERUM 137 mmol/L (136-145)
[2018-04-11 07:35] VITALS: BP 129/73
[2018-04-11 08:24] LABS: CALCIUM 7.9 mg/dL (8.5-10.1); CARBON DIOXIDE 23.8 mmol/L (21-32); CHLORIDE SERUM 110 mmol/L (98-107); CREATININE SERUM 1.2 mg/dL (0.7-1.3); GFR1 > 60 mL/min; GLUCOSE SERUM 145 mg/dL (74-106); MAGNESIUM 1.7 mg/dL (1.8-2.4); PHOSPHOROUS 2.2 mg/dL (2.5-4.9); POTASSIUM SERUM 4.1 mmol/L (3.5-5.1); SODIUM SERUM 141 mmol/L (136-145)
[2018-04-11 11:41] VITALS: BP 132/79
[2018-04-11 12:05] VITALS: BP 132/79
== END 2018-04-11 12:59 | disposition home or self-care (01) | DRG 420 ==
LOC: ED 11:49 → IC 13:22
PROVIDERS: Emergency Medicine; Internal Medicine
DX: E10.10 Type 1 diabetes mellitus with ketoacidosis without coma (principal); N17.0 Acute kidney failure with tubular necrosis; E86.0 Dehydration; F15.10 Other stimulant abuse, uncomplicated; E87.5 Hyperkalemia; D47.3 Essential (hemorrhagic) thrombocythemia; R74.0 Nonspecific elevation of levels of transaminase and lactic acid dehydrogenase [LDH]; Z79.4 Long term (current) use of insulin; Z68.24 Body mass index [BMI] 24.0-24.9, adult; Z91.14 Patient's other noncompliance with medication regimen
CPT/HCPCS: 82962; J1815; J3490; J7030; Q0092

== ENCOUNTER 2018-04-28 02:40 | Inpatient (IN) | payer MEDICAID ==
[~2018-04-28] VITALS: Ht 180.3 cm; Wt 86.2 kg
[2018-04-28 02:46] VITALS: Ht 180.3 cm; Wt 86.2 kg
[2018-04-28 05:04] LABS: BASOPHIL % 0.6 % (0-2); PLATELET COUNT 377 x10^3mcL (130-400)
[2018-04-28 05:05] LABS: RED CELL DISTRIBUTION WIDTH 15.7 % (11.5-14.5)
[2018-04-28 05:10] LABS: ALKALINE PHOSPHATASE 278 U/L (46-116); ALT/SGPT 305 U/L (16-63); AST/SGOT 546 U/L (15-37); CALCIUM 8.7 mg/dL (8.5-10.1); CARBON DIOXIDE 26.2 mmol/L (21-32); CHLORIDE SERUM 91 mmol/L (98-107); CREATININE SERUM 1.2 mg/dL (0.7-1.3); GFR1 > 60 mL/min; POTASSIUM SERUM 4.9 mmol/L (3.5-5.1); SODIUM SERUM 125 mmol/L (136-145)
[2018-04-28 05:12] LABS: ALBUMIN 2.9 g/dL (3.4-5.0)
[2018-04-28 05:38] LABS: GLUCOSE SERUM 786 mg/dL (74-106)
[2018-04-28 07:10] LABS: microscopic required? NO
[2018-04-28 07:37] LABS: MAGNESIUM 1.8 mg/dL (1.8-2.4); PHOSPHOROUS 3.4 mg/dL (2.5-4.9)
[2018-04-28 07:39] LABS: CHOLESTEROL/HDL RATIO 3.1
[2018-04-28 07:40] LABS: T3 TOTAL 0.84 ng/mL
[2018-04-28 07:41] LABS: FREE T4 0.99 ng/dL (0.76-1.46); FREE THYROXINE INDEX 2.4 ug/dL (1.4-4.5); T4(THYROXINE) 6.7 ug/dL (4.7-13.3)
[2018-04-28 07:53] LABS: UA SPECIFIC GRAVITY <=1.005 (1.005-1.035); urine erythrocyte NEGATIVE (NEGATIVE)
[2018-04-28 08:28] LABS: AMPHETAMINE QUAL UR NONE DETECTED (See below)
[2018-04-28 11:56] VITALS: BP 140/98
[2018-04-28 16:55] VITALS: BP 138/88
[2018-04-28 21:40] VITALS: BP 133/90
[2018-04-29 05:17] VITALS: BP 149/99
[2018-04-29 06:03] LABS: BASOPHIL % 0.6 % (0-2)
[2018-04-29 06:08] LABS: CALCIUM 8.8 mg/dL (8.5-10.1); CHLORIDE SERUM 102 mmol/L (98-107); CREATININE SERUM 0.9 mg/dL (0.7-1.3); GFR1 > 60 mL/min; GLUCOSE SERUM 71 mg/dL (74-106); POTASSIUM SERUM 3.9 mmol/L (3.5-5.1); SODIUM SERUM 139 mmol/L (136-145)
[2018-04-29 06:38] VITALS: BP 144/88
[2018-04-29 06:50] LABS: PLATELET COUNT 449 x10^3mcL (130-400); RED CELL DISTRIBUTION WIDTH 15.6 % (11.5-14.5)
[2018-04-29 09:46] VITALS: BP 130/86
[2018-04-29 17:29] VITALS: BP 144/90
[2018-04-29 20:50] VITALS: BP 146/98
[2018-04-30 05:48] VITALS: BP 133/93
[2018-04-30 07:06] LABS: CALCIUM 8.5 mg/dL (8.5-10.1); CARBON DIOXIDE 28.2 mmol/L (21-32); CHLORIDE SERUM 101 mmol/L (98-107); CREATININE SERUM 0.9 mg/dL (0.7-1.3); GFR1 > 60 mL/min; GLUCOSE SERUM 99 mg/dL (74-106); SODIUM SERUM 136 mmol/L (136-145)
[2018-04-30 07:12] LABS: BASOPHIL % 1.4 % (0-2); RED CELL DISTRIBUTION WIDTH 14.4 % (11.5-14.5)
[2018-04-30 07:29] LABS: PLATELET COUNT 475 x10^3mcL (130-400)
[2018-04-30 09:47] VITALS: BP 147/93
[2018-04-30 17:57] VITALS: BP 160/107
[2018-04-30 20:00] VITALS: BP 160/90
[2018-05-01 05:43] VITALS: BP 141/98
[2018-05-01 07:00] LABS: CALCIUM 9.2 mg/dL (8.5-10.1); CARBON DIOXIDE 30.9 mmol/L (21-32); CHLORIDE SERUM 100 mmol/L (98-107); CREATININE SERUM 0.9 mg/dL (0.7-1.3); GFR1 > 60 mL/min; GLUCOSE SERUM 75 mg/dL (74-106); MAGNESIUM 2.1 mg/dL (1.8-2.4); PHOSPHOROUS 3.7 mg/dL (2.5-4.9); POTASSIUM SERUM 4.1 mmol/L (3.5-5.1); SODIUM SERUM 137 mmol/L (136-145)
[2018-05-01 07:15] LABS: BASOPHIL % 0.9 % (0-2)
[2018-05-01 07:33] LABS: PLATELET COUNT 538 x10^3mcL (130-400); RED CELL DISTRIBUTION WIDTH 15.3 % (11.5-14.5)
[2018-05-01 09:05] VITALS: BP 142/100
[2018-05-01 17:47] VITALS: BP 146/96
[2018-05-01 20:50] VITALS: BP 150/96
[2018-05-02 05:31] VITALS: BP 136/88
[2018-05-02 07:11] LABS: CALCIUM 8.5 mg/dL (8.5-10.1); CARBON DIOXIDE 28.8 mmol/L (21-32); CHLORIDE SERUM 99 mmol/L (98-107); GFR1 > 60 mL/min; GLUCOSE SERUM 284 mg/dL (74-106); POTASSIUM SERUM 4.4 mmol/L (3.5-5.1); SODIUM SERUM 133 mmol/L (136-145)
[2018-05-02 08:03] LABS: BASOPHIL % 1.2 % (0-2); RED CELL DISTRIBUTION WIDTH 14.2 % (11.5-14.5)
[2018-05-02 08:04] LABS: PLATELET COUNT 518 x10^3mcL (130-400)
[2018-05-02 08:48] VITALS: BP 135/89
[2018-05-02 17:18] VITALS: BP 135/90
[2018-05-02 21:09] VITALS: BP 142/94
[2018-05-03 05:39] VITALS: BP 139/84
[2018-05-03 09:42] VITALS: BP 129/87
[2018-05-03 09:52] LABS: BASOPHIL % 1.1 % (0-2)
[2018-05-03 09:53] LABS: RED CELL DISTRIBUTION WIDTH 15.2 % (11.5-14.5)
[2018-05-03 10:08] LABS: CALCIUM 8.6 mg/dL (8.5-10.1); CARBON DIOXIDE 28.2 mmol/L (21-32); CHLORIDE SERUM 99 mmol/L (98-107); CREATININE SERUM 0.9 mg/dL (0.7-1.3); GFR1 > 60 mL/min; GLUCOSE SERUM 247 mg/dL (74-106); POTASSIUM SERUM 4.5 mmol/L (3.5-5.1); SODIUM SERUM 133 mmol/L (136-145)
[2018-05-03 12:24] LABS: PLATELET COUNT 545 x10^3mcL (130-400)
[2018-05-03 17:24] VITALS: BP 141/99
[2018-05-03 21:12] VITALS: BP 133/79
[2018-05-04 05:28] VITALS: BP 107/64
[2018-05-04 09:11] VITALS: BP 128/83
[2018-05-04] MEDS ORDERED: PER5 PO (10:29)
[2018-05-04] MEDS ORDERED: LAC PO (10:30)
[2018-05-04] MEDS ORDERED: CLEOCIN HCL300 MG PO (10:39)
[2018-05-04 10:55] VITALS: BP 128/83
[2018-05-04 17:39] VITALS: BP 136/77
[2018-05-04 20:35] VITALS: BP 133/62
[2018-05-05 05:17] VITALS: BP 124/70
[2018-05-05 10:30] VITALS: BP 124/71
[2018-05-05 12:58] VITALS: BP 124/71
== END 2018-05-05 15:13 | disposition home health service (06) | DRG 364 ==
LOC: ED 02:40 → MU 07:05
PROVIDERS: Emergency Medicine; Family Medicine; General Practice; Internal Medicine
PROC: 0J9Q0ZZ Drainage of Right Foot Subcutaneous Tissue and Fascia, Open Approach (ICD-10-PCS; principal; 2018-04-29)
DX: E10.621 Type 1 diabetes mellitus with foot ulcer (principal); L97.411 Non-pressure chronic ulcer of right heel and midfoot limited to breakdown of skin; N17.0 Acute kidney failure with tubular necrosis; E44.0 Moderate protein-calorie malnutrition; E87.3 Alkalosis; E87.1 Hypo-osmolality and hyponatremia; D68.69 Other thrombophilia; L03.115 Cellulitis of right lower limb; F15.10 Other stimulant abuse, uncomplicated; K76.0 Fatty (change of) liver, not elsewhere classified; F32.9 Major depressive disorder, single episode, unspecified; D64.9 Anemia, unspecified; R74.0 Nonspecific elevation of levels of transaminase and lactic acid dehydrogenase [LDH]; Z79.4 Long term (current) use of insulin; Z68.25 Body mass index [BMI] 25.0-25.9, adult; F17.210 Nicotine dependence, cigarettes, uncomplicated
CPT/HCPCS: 82962; 83880; 84439; 90658; 90715; 94150; J0295; J1170; J1815; J1885; J2001; J2250; J2270; J2405; J2543; J3010; J3370; J3490; J7030; J7040; J7050; Q0092

== ENCOUNTER 2018-05-19 10:16 | Emergency (ER) | payer MEDICAID ==
[~2018-05-19] VITALS: Ht 180.3 cm; Wt 83.0 kg
[~2018-05-19 10:16] MED LIST changes: +CLEOCIN HCL300 MG PO; +LAC PO; +PER5 PO
[2018-05-19 10:20] VITALS: BP 146/96; Ht 180.3 cm; Wt 83.0 kg
== END 2018-05-19 10:48 | disposition left against medical advice (07) ==
LOC: ED 10:16
DX: L03.115 Cellulitis of right lower limb (principal); S91.311D Laceration without foreign body, right foot, subsequent encounter; E11.9 Type 2 diabetes mellitus without complications; F32.9 Major depressive disorder, single episode, unspecified; X58.XXXD Exposure to other specified factors, subsequent encounter
CPT/HCPCS: Q0092

== ENCOUNTER 2018-09-21 02:33 | Emergency (ER) | payer MEDICAID ==
[~2018-09-21] VITALS: Ht 177.8 cm; Wt 85.9 kg
[2018-09-21 02:43] VITALS: Ht 177.8 cm; Wt 85.9 kg
[2018-09-21 04:53] VITALS: BP 148/99
== END 2018-09-21 04:53 | disposition home or self-care (01) ==
LOC: ED 02:33
DX: G89.29 Other chronic pain (principal); M79.671 Pain in right foot; M79.672 Pain in left foot; E11.42 Type 2 diabetes mellitus with diabetic polyneuropathy; F32.9 Major depressive disorder, single episode, unspecified; Z98.890 Other specified postprocedural states
CPT/HCPCS: 82962

== ENCOUNTER 2018-10-23 11:05 | Emergency (ER) | payer MEDICAID ==
[~2018-10-23] VITALS: Ht 177.8 cm; Wt 81.6 kg
[2018-10-23 11:23] VITALS: Ht 177.8 cm; Wt 81.6 kg
[2018-10-23 12:01] VITALS: BP 142/83
== END 2018-10-23 12:02 | disposition home or self-care (01) ==
LOC: ED 11:05
DX: F29 Unspecified psychosis not due to a substance or known physiological condition (principal); E11.9 Type 2 diabetes mellitus without complications

== ENCOUNTER 2018-10-23 15:17 | Emergency (ER) | payer MEDICAID ==
[~2018-10-23] VITALS: Ht 177.8 cm; Wt 85.3 kg
[2018-10-23 15:31] VITALS: BP 138/83; Ht 177.8 cm; Wt 85.3 kg
== END 2018-10-23 16:19 | disposition left against medical advice (07) ==
LOC: ED 15:17
DX: F32.9 Major depressive disorder, single episode, unspecified (principal); E11.9 Type 2 diabetes mellitus without complications
CPT/HCPCS: G0480

== ENCOUNTER 2018-11-24 01:37 | Emergency (ER) | payer SELFPAY ==
[~2018-11-24] VITALS: Ht 172.7 cm; Wt 79.4 kg
[2018-11-24 01:43] VITALS: Ht 172.7 cm; Wt 79.4 kg
[2018-11-24 02:52] LABS: BASOPHIL % 1.3 % (0-2); RED CELL DISTRIBUTION WIDTH 14.5 % (11.5-14.5)
[2018-11-24 02:53] LABS: PLATELET COUNT 460 x10^3mcL (130-400)
[2018-11-24 03:12] LABS: ALBUMIN 3.4 g/dL (3.4-5.0); ALKALINE PHOSPHATASE 81 U/L (46-116); ALT/SGPT 34 U/L (16-63); AST/SGOT 39 U/L (15-37); BILIRUBIN TOTAL 0.47 mg/dL (0.20-1.00); CALCIUM 9.1 mg/dL (8.5-10.1); CARBON DIOXIDE 30.6 mmol/L (21-32); CHLORIDE SERUM 107 mmol/L (98-107); CREATININE SERUM 0.9 mg/dL (0.7-1.3); GFR1 > 60 mL/min; POTASSIUM SERUM 3.2 mmol/L (3.5-5.1); SODIUM SERUM 146 mmol/L (136-145); TOTAL PROTEIN, SERUM 6.8 g/dL (6.4-8.2)
[2018-11-24 03:14] LABS: GLUCOSE SERUM 50 mg/dL (74-106)
[2018-11-24 03:52] LABS: AMPHETAMINE QUAL UR POSITIVE (See below)
[2018-11-24 06:08] VITALS: BP 157/101
== END 2018-11-24 06:08 | disposition home or self-care (01) ==
LOC: ED 01:37
PROVIDERS: Emergency Medicine
DX: E11.649 Type 2 diabetes mellitus with hypoglycemia without coma (principal); F32.9 Major depressive disorder, single episode, unspecified; F15.10 Other stimulant abuse, uncomplicated; Z90.89 Acquired absence of other organs
CPT/HCPCS: 82962; B4164; G0480; J3490; J7030

== ENCOUNTER 2018-11-27 22:09 | Emergency (ER) | payer SELFPAY ==
[~2018-11-27] VITALS: Ht 180.3 cm; Wt 68.0 kg
[2018-11-27 22:13] VITALS: Ht 180.3 cm; Wt 68.0 kg
[2018-11-27 23:34] VITALS: BP 150/100
== END 2018-11-27 23:34 | disposition left against medical advice (07) ==
LOC: ED 22:09
DX: R07.89 Other chest pain (principal); R42 Dizziness and giddiness; E11.9 Type 2 diabetes mellitus without complications; F32.9 Major depressive disorder, single episode, unspecified; F17.210 Nicotine dependence, cigarettes, uncomplicated
CPT/HCPCS: 82962; 83880; 85378; J7030

== ENCOUNTER 2019-04-01 02:49 | Emergency (ER) | payer MEDICAID ==
[~2019-04-01] VITALS: Ht 177.8 cm; Wt 81.6 kg
[2019-04-01 02:56] VITALS: Ht 177.8 cm; Wt 81.6 kg
[2019-04-01 04:35] VITALS: BP 133/94
== END 2019-04-01 04:35 | disposition left against medical advice (07) ==
LOC: ED 02:49
DX: R00.0 Tachycardia, unspecified (principal); E11.65 Type 2 diabetes mellitus with hyperglycemia; I10 Essential (primary) hypertension; F32.9 Major depressive disorder, single episode, unspecified; F41.9 Anxiety disorder, unspecified; G43.909 Migraine, unspecified, not intractable, without status migrainosus

== ENCOUNTER 2019-04-13 22:39 | Emergency (ER) | payer MEDICAID ==
[~2019-04-13] VITALS: Ht 180.3 cm; Wt 85.3 kg
[2019-04-13 22:46] VITALS: BP 147/100; Ht 180.3 cm; Wt 85.3 kg
== END 2019-04-13 23:46 | disposition home or self-care (01) ==
LOC: ED 22:39
DX: F41.9 Anxiety disorder, unspecified (principal); I10 Essential (primary) hypertension; E11.9 Type 2 diabetes mellitus without complications; F32.9 Major depressive disorder, single episode, unspecified; G43.909 Migraine, unspecified, not intractable, without status migrainosus
CPT/HCPCS: 82962

== ENCOUNTER 2019-04-28 00:57 | Emergency (ER) | payer MEDICAID ==
[~2019-04-28] VITALS: Ht 180.3 cm; Wt 81.2 kg
[2019-04-28 01:01] VITALS: Ht 180.3 cm; Wt 81.2 kg
[2019-04-28 01:56] VITALS: BP 142/86
== END 2019-04-28 01:56 | disposition home or self-care (01) ==
LOC: ED 00:57
DX: T81.49XA Infection following a procedure, other surgical site, initial encounter (principal); I10 Essential (primary) hypertension; E11.9 Type 2 diabetes mellitus without complications; F32.9 Major depressive disorder, single episode, unspecified; F41.9 Anxiety disorder, unspecified; G43.909 Migraine, unspecified, not intractable, without status migrainosus
CPT/HCPCS: 82962

== ENCOUNTER 2019-05-03 00:34 | Emergency (ER) | payer MEDICAID | END 2019-05-03 02:38 | disposition left against medical advice (07) | LOC: ED 00:34 | DX: Z53.21 Procedure and treatment not carried out due to patient leaving prior to being seen by health care provider (principal) ==

== ENCOUNTER 2019-05-17 02:08 | Emergency (ER) | payer MEDICAID ==
[~2019-05-17] VITALS: Ht 180.3 cm; Wt 84.2 kg
[2019-05-17 02:26] VITALS: BP 138/92; Ht 180.3 cm; Wt 84.2 kg
== END 2019-05-17 03:56 | disposition left against medical advice (07) ==
LOC: ED 02:08
DX: Z53.21 Procedure and treatment not carried out due to patient leaving prior to being seen by health care provider (principal)

== ENCOUNTER 2019-05-23 01:53 | Inpatient (IN) | payer MEDICAID ==
[~2019-05-23] VITALS: Ht 180.3 cm; Wt 86.2 kg
[2019-05-23 02:13] VITALS: Ht 180.3 cm; Wt 86.2 kg
--- NOTE | 2019-05-23 02:26 | NUR ---
PT BIB [facility] FOR C/O HIGH BG. PER MEDICS PT WAS READING "HIGH" ON THERE GLUCOSE MONITOR. PT REPORTS THAT HE RAN OUT OF HIS INSULIN TODAY AND USUALLY TAKES IT 4 TIMES A DAY. PT ALSO REPORTING GENERAL MALAISE, DIZZINESS, AND FATIGUE. PT DENIES ANY OTHER SYMPTOMS. PT IS A/O X4. RESP ARE E/U. NO ACUTE DISTRESS NOTED.
--- NOTE | 2019-05-23 02:45 | NUR ---
PT STARTED ON 2 LITERS OF NS WO PER MD BARRY VERBAL ORDER FOR A HIGH BG.
[2019-05-23 03:49] LABS: BASOPHIL % 0.6 % (0-2); PLATELET COUNT 330 x10^3mcL (130-400)
[2019-05-23 03:50] LABS: RED CELL DISTRIBUTION WIDTH 14.8 % (11.5-14.5)
[2019-05-23 04:25] LABS: AMPHETAMINE QUAL UR POSITIVE (See below)
[2019-05-23 04:35] LABS: BILIRUBIN TOTAL 0.69 mg/dL (0.20-1.00); CALCIUM 8.1 mg/dL (8.5-10.1); CARBON DIOXIDE 24.7 mmol/L (21-32); CREATININE SERUM 1.8 mg/dL (0.7-1.3); POTASSIUM SERUM 5.3 mmol/L (3.5-5.1); TOTAL PROTEIN, SERUM 6.5 g/dL (6.4-8.2)
[2019-05-23 04:41] LABS: ALBUMIN 3.3 g/dL (3.4-5.0)
[2019-05-23] MEDS ORDERED: LISINOPRIL10 MG PO (04:56)
--- NOTE | 2019-05-23 05:42 | NUR ---
PT STARTED ON AN INSULIN DRIP COSIGNED BY DEEJAY KINGSTON. PT IS RESTING IN BED AND WAS PROVIDED WITH SUGAR FREE JELLO AND WATER. PT VITALS ARE STABLE. PT REPORTS A HEADACHE AT THIS TIME. PT IS A/O X4. RESP ARE E/U. NO ACUTE DISTRESS NOTED.
--- NOTE | 2019-05-23 06:34 | NUR ---
PT REFUSED ABG, RN NOTIFIED.
--- NOTE | 2019-05-23 06:47 | NUR ---
PTS INSULIN DRIP DECREASED TO 5U/HR FOR A BG OF 451.
[2019-05-23 07:21] VITALS: BP 127/84
--- NOTE | 2019-05-23 07:22 | NUR ---
PT REQUESTING TO EAT, INFORMED BS IS CURRENTLY 421, STS "I NEED SOLID FOOD", INFORMED I WILL PAGE A RESIDENT AND ASK FOR ORDERS, STS "CAN I AMA".
--- NOTE | 2019-05-23 07:25 | NUR ---
SPOKE WITH DR MCQUEEN, INFORMED PT WANTS TO AMA, STS "WE HAVE MORNING REPORT RIGHT NOW, WE WILL GO SEE HIM SOON IT'S OVER. IF HE WANTS TO AMA HE CAN, HE KNOWS WHAT IS GOING ON WITH HIS HEALTH."
--- NOTE | 2019-05-23 07:29 | NUR ---
PT GIVEN SUGARFREE JELLO.
--- NOTE | 2019-05-23 07:37 | NUR ---
PT SIGNED AMA FORM, EDUCATED ON RISKS ASSOCIATED WITH LEAVING AMA,INCLUDING BY DR CLEMONS, PT VERBALIZED UNDERSTANDING OF TEACHING. I REMAIN AT BEDSIDE TO WITNESS.
[2019-05-23 07:54] LABS: PHOSPHOROUS 5.4 mg/dL (2.5-4.9)
== END 2019-05-23 17:53 | disposition left against medical advice (07) | DRG 420 ==
LOC: ED 01:53 → IC 05:26
PROVIDERS: Emergency Medicine; ADMIT General Practice
DX: E10.65 Type 1 diabetes mellitus with hyperglycemia (principal); N17.0 Acute kidney failure with tubular necrosis; E87.5 Hyperkalemia; E44.1 Mild protein-calorie malnutrition; T38.3X6A Underdosing of insulin and oral hypoglycemic [antidiabetic] drugs, initial encounter; E87.1 Hypo-osmolality and hyponatremia; I10 Essential (primary) hypertension; D64.9 Anemia, unspecified; F15.10 Other stimulant abuse, uncomplicated; Z59.0 Homelessness; Z79.4 Long term (current) use of insulin; Z68.26 Body mass index [BMI] 26.0-26.9, adult; Y92.89 Other specified places as the place of occurrence of the external cause
CPT/HCPCS: 82962; G0378; J1815; J7030; Q0092

== ENCOUNTER 2019-08-24 02:12 | Emergency (ER) | payer MEDICAID ==
[~2019-08-24] VITALS: Ht 180.3 cm; Wt 87.1 kg
[~2019-08-24 02:12] MED LIST changes: +LISINOPRIL10 MG PO
[2019-08-24 02:21] VITALS: Ht 180.3 cm; Wt 87.1 kg
[2019-08-24 03:11] VITALS: BP 145/95
== END 2019-08-24 03:11 | disposition home or self-care (01) ==
LOC: ED 02:12
DX: H92.03 Otalgia, bilateral (principal); F17.210 Nicotine dependence, cigarettes, uncomplicated; F15.10 Other stimulant abuse, uncomplicated; I10 Essential (primary) hypertension; E11.9 Type 2 diabetes mellitus without complications; G43.909 Migraine, unspecified, not intractable, without status migrainosus; R09.81 Nasal congestion
CPT/HCPCS: 99406; J1885

== ENCOUNTER 2019-09-28 21:10 | Emergency (ER) | payer MEDICAID ==
[~2019-09-28] VITALS: Ht 180.3 cm; Wt 83.0 kg
[2019-09-28 22:05] VITALS: Ht 180.3 cm; Wt 83.0 kg
[2019-09-28 23:26] VITALS: BP 152/94
== END 2019-09-28 23:26 | disposition left against medical advice (07) ==
LOC: ED 21:10
DX: L02.416 Cutaneous abscess of left lower limb (principal); R00.0 Tachycardia, unspecified; H92.01 Otalgia, right ear; E11.9 Type 2 diabetes mellitus without complications; G43.909 Migraine, unspecified, not intractable, without status migrainosus; Z59.0 Homelessness
CPT/HCPCS: J3490

== ENCOUNTER 2019-10-05 04:24 | Emergency (ER) | payer MEDICAID ==
[~2019-10-05] VITALS: Ht 180.3 cm; Wt 85.9 kg
[2019-10-05 04:38] VITALS: Ht 180.3 cm; Wt 85.9 kg
[2019-10-05 05:38] VITALS: BP 151/107
== END 2019-10-05 05:38 | disposition home or self-care (01) ==
LOC: ED 04:24
DX: H60.13 Cellulitis of external ear, bilateral (principal); E11.9 Type 2 diabetes mellitus without complications; I10 Essential (primary) hypertension
CPT/HCPCS: 82962; J1885

== ENCOUNTER 2019-10-13 19:35 | Emergency (ER) | payer MEDICAID ==
[~2019-10-13] VITALS: Ht 180.3 cm; Wt 88.0 kg
[2019-10-13 20:03] VITALS: Ht 180.3 cm; Wt 88.0 kg
[2019-10-13 21:05] VITALS: BP 163/99
== END 2019-10-13 21:05 | disposition home or self-care (01) ==
LOC: ED 19:35
DX: H60.11 Cellulitis of right external ear (principal); I10 Essential (primary) hypertension; E11.9 Type 2 diabetes mellitus without complications; G43.909 Migraine, unspecified, not intractable, without status migrainosus
CPT/HCPCS: 82962

== ENCOUNTER 2019-10-14 03:19 | Emergency (ER) | payer MEDICAID ==
[~2019-10-14] VITALS: Ht 180.3 cm; Wt 86.2 kg
[2019-10-14 03:22] VITALS: Ht 180.3 cm; Wt 86.2 kg
[2019-10-14 07:57] VITALS: BP 153/98
== END 2019-10-14 07:57 | disposition home or self-care (01) ==
LOC: ED 03:19
DX: E11.649 Type 2 diabetes mellitus with hypoglycemia without coma (principal); I10 Essential (primary) hypertension; G43.909 Migraine, unspecified, not intractable, without status migrainosus; Z79.4 Long term (current) use of insulin
CPT/HCPCS: 82962

== ENCOUNTER 2019-10-22 02:17 | Emergency (ER) | payer MEDICAID ==
[~2019-10-22] VITALS: Ht 180.3 cm; Wt 86.2 kg
[2019-10-22 02:24] VITALS: Ht 180.3 cm; Wt 86.2 kg
[2019-10-22 04:52] LABS: BASOPHIL % 0.9 % (0-2); PLATELET COUNT 356 x10^3mcL (130-400); RED CELL DISTRIBUTION WIDTH 13.6 % (11.5-14.5)
[2019-10-22 04:54] LABS: CALCIUM 9.5 mg/dL (8.5-10.1); CARBON DIOXIDE 21.4 mmol/L (21-32); CREATININE SERUM 2.2 mg/dL (0.7-1.3); POTASSIUM SERUM 4.4 mmol/L (3.5-5.1)
[2019-10-22 04:55] LABS: ALBUMIN 4.3 g/dL (3.4-5.0); BILIRUBIN TOTAL 1.1 mg/dL (0.20-1.00); PHOSPHOROUS 6.4 mg/dL (2.5-4.9); TOTAL PROTEIN, SERUM 8.1 g/dL (6.4-8.2)
[2019-10-22 06:15] VITALS: BP 176/86
== END 2019-10-22 06:15 | disposition left against medical advice (07) ==
LOC: ED 02:17
PROVIDERS: Emergency Medicine
DX: E11.65 Type 2 diabetes mellitus with hyperglycemia (principal); I10 Essential (primary) hypertension; G43.909 Migraine, unspecified, not intractable, without status migrainosus
CPT/HCPCS: 36415; 82962; J1815; Q0092

== ENCOUNTER 2019-10-29 01:26 | Emergency (ER) | payer MEDICAID ==
[~2019-10-29] VITALS: Ht 180.3 cm; Wt 88.0 kg
[2019-10-29 01:37] VITALS: Ht 180.3 cm; Wt 88.0 kg
[2019-10-29 04:53] VITALS: BP 139/76
== END 2019-10-29 04:53 | disposition home or self-care (01) ==
LOC: ED 01:26
DX: L03.031 Cellulitis of right toe (principal); H92.03 Otalgia, bilateral; F15.10 Other stimulant abuse, uncomplicated; R42 Dizziness and giddiness; I10 Essential (primary) hypertension; E11.40 Type 2 diabetes mellitus with diabetic neuropathy, unspecified; G43.909 Migraine, unspecified, not intractable, without status migrainosus; F17.210 Nicotine dependence, cigarettes, uncomplicated
CPT/HCPCS: 82962

== ENCOUNTER 2019-10-31 04:57 | Inpatient (IN) | payer MEDICAID ==
[~2019-10-31] VITALS: Ht 180.3 cm; Wt 86.2 kg
[2019-10-31 07:41] LABS: microscopic required? NO
[2019-10-31 08:02] LABS: ALKALINE PHOSPHATASE 42 U/L (46-116); ALT/SGPT 23 U/L (16-63); AST/SGOT 26 U/L (15-37); BILIRUBIN TOTAL 0.7 mg/dL (0.20-1.00); CARBON DIOXIDE 14.1 mmol/L (21-32); CHLORIDE SERUM 114 mmol/L (98-107); CREATININE SERUM 0.5 mg/dL (0.7-1.3); GFR1 > 60 mL/min; GLUCOSE SERUM 415 mg/dL (74-106); SODIUM SERUM 142 mmol/L (136-145)
[2019-10-31 08:06] LABS: ALBUMIN 1.7 g/dL (3.4-5.0); TOTAL PROTEIN, SERUM 3.3 g/dL (6.4-8.2)
[2019-10-31 08:21] LABS: BASOPHIL % 0.7 % (0-2); PLATELET COUNT 201 x10^3mcL (130-400); RED CELL DISTRIBUTION WIDTH 13.3 % (11.5-14.5)
[2019-10-31 08:37] LABS: UA SPECIFIC GRAVITY <=1.005 (1.005-1.035); urine erythrocyte NEGATIVE (NEGATIVE)
[2019-10-31 08:53] LABS: POTASSIUM SERUM 2.1 mmol/L (3.5-5.1)
[2019-10-31 08:54] LABS: CALCIUM 4.2 mg/dL (8.5-10.1)
[2019-10-31 09:15] LABS: AMPHETAMINE QUAL UR POSITIVE (See below)
[2019-10-31 09:48] LABS: T4(THYROXINE) 4.3 ug/dL (4.7-13.3)
[2019-10-31 11:01] VITALS: BP 141/79
[2019-10-31 12:12] VITALS: BP 131/69
[2019-10-31 17:04] VITALS: BP 143/88
[2019-10-31 21:15] LABS: CALCIUM 8.3 mg/dL (8.5-10.1); CARBON DIOXIDE 27.5 mmol/L (21-32); CHLORIDE SERUM 101 mmol/L (98-107); CREATININE SERUM 1.1 mg/dL (0.7-1.3); GFR1 > 60 mL/min; GLUCOSE SERUM 307 mg/dL (74-106); SODIUM SERUM 136 mmol/L (136-145)
[2019-10-31 21:34] VITALS: BP 155/91
== END 2019-10-31 22:20 | disposition left against medical advice (07) | DRG 420 ==
LOC: ED 04:57 → DU 09:27
PROVIDERS: Emergency Medicine; ADMIT Family Medicine; ATTEND Family Medicine
DX: E10.65 Type 1 diabetes mellitus with hyperglycemia (principal); E43 Unspecified severe protein-calorie malnutrition; E10.40 Type 1 diabetes mellitus with diabetic neuropathy, unspecified; I10 Essential (primary) hypertension; F15.20 Other stimulant dependence, uncomplicated; F32.9 Major depressive disorder, single episode, unspecified; G43.909 Migraine, unspecified, not intractable, without status migrainosus; F41.9 Anxiety disorder, unspecified; F17.210 Nicotine dependence, cigarettes, uncomplicated; E87.6 Hypokalemia; D64.9 Anemia, unspecified; Z53.29 Procedure and treatment not carried out because of patient's decision for other reasons; F12.10 Cannabis abuse, uncomplicated; Z91.14 Patient's other noncompliance with medication regimen; Z59.0 Homelessness; Z79.4 Long term (current) use of insulin; Z79.899 Other long term (current) drug therapy
CPT/HCPCS: 82962; 99406; G0378; J1815; J3480; J7030; Q0092

== ENCOUNTER 2019-11-08 22:14 | Emergency (ER) | payer MEDICAID ==
[~2019-11-08] VITALS: Ht 177.8 cm; Wt 85.3 kg
[2019-11-08 22:54] VITALS: Ht 177.8 cm; Wt 85.3 kg
[2019-11-08 23:33] VITALS: BP 168/89
== END 2019-11-08 23:33 | disposition home or self-care (01) ==
LOC: ED 22:14
DX: H60.13 Cellulitis of external ear, bilateral (principal); E11.65 Type 2 diabetes mellitus with hyperglycemia; L98.9 Disorder of the skin and subcutaneous tissue, unspecified; I10 Essential (primary) hypertension; G43.909 Migraine, unspecified, not intractable, without status migrainosus; E11.40 Type 2 diabetes mellitus with diabetic neuropathy, unspecified
CPT/HCPCS: 82962; J1885

== ENCOUNTER 2019-11-18 03:43 | Emergency (ER) | payer MEDICAID ==
[~2019-11-18] VITALS: Ht 180.3 cm; Wt 93.0 kg
[2019-11-18 03:55] VITALS: BP 159/96; Ht 180.3 cm; Wt 93.0 kg
== END 2019-11-18 04:04 | disposition left against medical advice (07) ==
LOC: ED 03:43
DX: Z53.21 Procedure and treatment not carried out due to patient leaving prior to being seen by health care provider (principal)
CPT/HCPCS: 82962

== ENCOUNTER 2019-11-19 18:21 | Emergency (ER) | payer MEDICAID ==
[~2019-11-19] VITALS: Ht 175.3 cm; Wt 92.5 kg
[2019-11-19 18:49] VITALS: Ht 175.3 cm; Wt 92.5 kg
[2019-11-19 19:20] LABS: BASOPHIL % 0.5 % (0-2); RED CELL DISTRIBUTION WIDTH 14.3 % (11.5-14.5)
[2019-11-19 19:24] LABS: PLATELET COUNT 468 x10^3mcL (130-400)
[2019-11-19 19:33] LABS: ALBUMIN 3.9 g/dL (3.4-5.0); ALKALINE PHOSPHATASE 85 U/L (46-116); ALT/SGPT 30 U/L (16-63); AST/SGOT 19 U/L (15-37); BILIRUBIN TOTAL 0.77 mg/dL (0.20-1.00); CALCIUM 9.5 mg/dL (8.5-10.1); CHLORIDE SERUM 102 mmol/L (98-107); CREATININE SERUM 1.2 mg/dL (0.7-1.3); GFR1 > 60 mL/min; POTASSIUM SERUM 3.4 mmol/L (3.5-5.1); SODIUM SERUM 140 mmol/L (136-145); TOTAL PROTEIN, SERUM 7.6 g/dL (6.4-8.2)
[2019-11-19 19:36] LABS: GLUCOSE SERUM 38 mg/dL (74-106)
[2019-11-19 21:35] VITALS: BP 126/76
== END 2019-11-19 21:35 | disposition home or self-care (01) ==
LOC: ED 18:21
PROVIDERS: Emergency Medicine
DX: R41.82 Altered mental status, unspecified (principal); T38.3X5A Adverse effect of insulin and oral hypoglycemic [antidiabetic] drugs, initial encounter; I10 Essential (primary) hypertension; E11.40 Type 2 diabetes mellitus with diabetic neuropathy, unspecified; G43.909 Migraine, unspecified, not intractable, without status migrainosus; Y92.89 Other specified places as the place of occurrence of the external cause
CPT/HCPCS: 82962

== ENCOUNTER 2019-11-23 01:38 | Emergency (ER) | payer MEDICAID ==
[~2019-11-23] VITALS: Ht 180.3 cm; Wt 88.9 kg
[2019-11-23 01:48] VITALS: Ht 180.3 cm; Wt 88.9 kg
[2019-11-23 03:43] VITALS: BP 143/81
== END 2019-11-23 03:43 | disposition left against medical advice (07) ==
LOC: ED 01:38
DX: E11.65 Type 2 diabetes mellitus with hyperglycemia (principal); I10 Essential (primary) hypertension; E11.40 Type 2 diabetes mellitus with diabetic neuropathy, unspecified; G43.909 Migraine, unspecified, not intractable, without status migrainosus; R11.0 Nausea
CPT/HCPCS: 82962

== ENCOUNTER 2019-12-03 23:41 | Emergency (ER) | payer MEDICAID ==
[~2019-12-03] VITALS: Ht 180.3 cm; Wt 86.2 kg
[2019-12-04 00:03] VITALS: Ht 180.3 cm; Wt 86.2 kg
[2019-12-04 02:57] VITALS: BP 141/102
== END 2019-12-04 02:57 | disposition left against medical advice (07) ==
LOC: ED 23:41
DX: S00.06XA Insect bite (nonvenomous) of scalp, initial encounter (principal); E11.65 Type 2 diabetes mellitus with hyperglycemia; I10 Essential (primary) hypertension; G43.909 Migraine, unspecified, not intractable, without status migrainosus; Z98.890 Other specified postprocedural states; W57.XXXA Bitten or stung by nonvenomous insect and other nonvenomous arthropods, initial encounter; Y93.89 Activity, other specified; Y92.89 Other specified places as the place of occurrence of the external cause; Y99.8 Other external cause status
CPT/HCPCS: 82962; J1815; J7030

== ENCOUNTER 2019-12-10 23:46 | Emergency (ER) | payer MEDICAID ==
[~2019-12-10] VITALS: Ht 180.3 cm; Wt 86.2 kg
[2019-12-10 23:53] VITALS: Ht 180.3 cm; Wt 86.2 kg
[2019-12-11 00:19] LABS: BASOPHIL % 0.3 % (0-2); RED CELL DISTRIBUTION WIDTH 13.7 % (11.5-14.5)
[2019-12-11 00:22] LABS: PLATELET COUNT 513 x10^3mcL (130-400)
[2019-12-11 00:31] LABS: CALCIUM 9.9 mg/dL (8.5-10.1); CREATININE SERUM 2.2 mg/dL (0.7-1.3); POTASSIUM SERUM 3.5 mmol/L (3.5-5.1)
[2019-12-11 00:35] LABS: ALBUMIN 4.3 g/dL (3.4-5.0); BILIRUBIN TOTAL 0.7 mg/dL (0.20-1.00); TOTAL PROTEIN, SERUM 8.2 g/dL (6.4-8.2)
[2019-12-11 00:45] VITALS: BP 119/68
== END 2019-12-11 00:50 | disposition left against medical advice (07) ==
LOC: ED 23:46
PROVIDERS: Emergency Medicine
DX: E11.65 Type 2 diabetes mellitus with hyperglycemia (principal); F15.10 Other stimulant abuse, uncomplicated
CPT/HCPCS: 82962; J7030

== ENCOUNTER 2019-12-30 03:16 | Emergency (ER) | payer MEDICAID ==
[~2019-12-30] VITALS: Ht 177.8 cm; Wt 81.6 kg
[2019-12-30 03:29] VITALS: Ht 177.8 cm; Wt 81.6 kg
[2019-12-30 04:55] LABS: BASOPHIL % 0.4 % (0-2); RED CELL DISTRIBUTION WIDTH 13.9 % (11.5-14.5)
[2019-12-30 05:04] LABS: CALCIUM 9.2 mg/dL (8.5-10.1); CARBON DIOXIDE 25.2 mmol/L (21-32); CREATININE SERUM 2.3 mg/dL (0.7-1.3); POTASSIUM SERUM 3.1 mmol/L (3.5-5.1)
[2019-12-30 05:08] LABS: ALBUMIN 4.4 g/dL (3.4-5.0); BILIRUBIN TOTAL 0.6 mg/dL (0.20-1.00); MAGNESIUM 1.7 mg/dL (1.8-2.4); PLATELET COUNT 466 x10^3mcL (130-400)
[2019-12-30 05:09] LABS: TOTAL PROTEIN, SERUM 8.3 g/dL (6.4-8.2)
[2019-12-30 06:00] LABS: UA SPECIFIC GRAVITY >=1.030 (1.005-1.035); microscopic required? YES; urine erythrocyte NEGATIVE (NEGATIVE)
[2019-12-30 06:30] VITALS: BP 160/100
== END 2019-12-30 06:30 | disposition home or self-care (01) ==
LOC: ED 03:16
PROVIDERS: Emergency Medicine
DX: R53.1 Weakness (principal); H92.01 Otalgia, right ear; I10 Essential (primary) hypertension; E11.9 Type 2 diabetes mellitus without complications; E11.40 Type 2 diabetes mellitus with diabetic neuropathy, unspecified; G43.909 Migraine, unspecified, not intractable, without status migrainosus
CPT/HCPCS: 82962

== ENCOUNTER 2020-01-05 18:17 | Emergency (ER) | payer MEDICAID ==
[~2020-01-05] VITALS: Ht 177.8 cm; Wt 86.2 kg
[2020-01-05 20:26] VITALS: BP 151/89
== END 2020-01-05 20:26 | disposition home or self-care (01) ==
LOC: ED 18:17
DX: H92.03 Otalgia, bilateral (principal); R21 Rash and other nonspecific skin eruption; I10 Essential (primary) hypertension; E11.40 Type 2 diabetes mellitus with diabetic neuropathy, unspecified

== ENCOUNTER 2020-01-05 20:43 | Emergency (ER) | payer MEDICAID | END 2020-01-05 21:11 | disposition left against medical advice (07) | LOC: ED 20:43 | DX: Z53.21 Procedure and treatment not carried out due to patient leaving prior to being seen by health care provider (principal) | CPT/HCPCS: 82962 ==

== ENCOUNTER 2020-01-08 11:55 | Emergency (ER) | payer MEDICAID ==
[~2020-01-08] VITALS: Ht 180.3 cm; Wt 86.2 kg
[2020-01-08 11:57] VITALS: Ht 180.3 cm; Wt 86.2 kg
[2020-01-08 12:30] LABS: BASOPHIL % 0.7 % (0-2); PLATELET COUNT 332 x10^3mcL (130-400); RED CELL DISTRIBUTION WIDTH 13.3 % (11.5-14.5)
[2020-01-08 13:24] LABS: CALCIUM 8.8 mg/dL (8.5-10.1); CARBON DIOXIDE 26.7 mmol/L (21-32); CHLORIDE SERUM 93 mmol/L (98-107); CREATININE SERUM 1.2 mg/dL (0.7-1.3); GFR1 > 60 mL/min; LIPASE 395 IU/L (73-393); POTASSIUM SERUM 5.1 mmol/L (3.5-5.1); SODIUM SERUM 128 mmol/L (136-145)
[2020-01-08 13:46] LABS: GLUCOSE SERUM 676 mg/dL (74-106)
[2020-01-08 15:02] VITALS: BP 131/81
== END 2020-01-08 15:02 | disposition other institution (70) ==
LOC: ED 11:55
PROVIDERS: Emergency Medicine
DX: E10.65 Type 1 diabetes mellitus with hyperglycemia (principal); I10 Essential (primary) hypertension; G43.909 Migraine, unspecified, not intractable, without status migrainosus; E10.40 Type 1 diabetes mellitus with diabetic neuropathy, unspecified
CPT/HCPCS: 36600; 82962; J1815; J7030

== ENCOUNTER 2020-01-08 11:55 | Emergency (ER) | payer OTHER | END 2020-01-08 15:02 | disposition other institution (70) | LOC: ED 11:55 | DX: Z02.89 Encounter for other administrative examinations (principal) ==

== ENCOUNTER 2020-01-10 21:02 | Emergency (ER) | payer MEDICAID ==
[2020-01-10 22:32] VITALS: BP 163/97
== END 2020-01-10 22:32 | disposition left against medical advice (07) ==
LOC: ED 21:02
DX: E11.65 Type 2 diabetes mellitus with hyperglycemia (principal); F17.200 Nicotine dependence, unspecified, uncomplicated; I10 Essential (primary) hypertension; G43.909 Migraine, unspecified, not intractable, without status migrainosus; E11.40 Type 2 diabetes mellitus with diabetic neuropathy, unspecified
CPT/HCPCS: 82962; 99406; J1815

== ENCOUNTER 2020-01-14 20:12 | Emergency (ER) | payer MEDICAID ==
[~2020-01-14] VITALS: Ht 180.3 cm; Wt 93.0 kg
[2020-01-14 20:16] VITALS: Ht 180.3 cm; Wt 93.0 kg
[2020-01-14 20:30] VITALS: BP 176/98
== END 2020-01-14 20:57 | disposition left against medical advice (07) ==
LOC: ED 20:12
DX: E11.65 Type 2 diabetes mellitus with hyperglycemia (principal); I10 Essential (primary) hypertension; Z98.890 Other specified postprocedural states
CPT/HCPCS: 82962

== ENCOUNTER 2020-01-15 03:38 | Emergency (ER) | payer MEDICAID ==
[~2020-01-15] VITALS: Ht 180.3 cm; Wt 89.8 kg
[2020-01-15 04:02] VITALS: Ht 180.3 cm; Wt 89.8 kg
[2020-01-15 04:37] VITALS: BP 146/97
== END 2020-01-15 04:38 | disposition home or self-care (01) ==
LOC: ED 03:38
DX: E11.65 Type 2 diabetes mellitus with hyperglycemia (principal); I10 Essential (primary) hypertension; G43.909 Migraine, unspecified, not intractable, without status migrainosus; R00.0 Tachycardia, unspecified; H92.03 Otalgia, bilateral
CPT/HCPCS: 82962

== ENCOUNTER 2020-01-25 21:59 | Emergency (ER) | payer MEDICAID ==
[~2020-01-25] VITALS: Ht 180.3 cm; Wt 86.6 kg
[2020-01-25 22:09] VITALS: BP 145/80
== END 2020-01-26 00:12 | disposition left against medical advice (07) ==
LOC: ED 21:59
DX: L02.415 Cutaneous abscess of right lower limb (principal); L03.115 Cellulitis of right lower limb; R00.0 Tachycardia, unspecified; E11.65 Type 2 diabetes mellitus with hyperglycemia; I10 Essential (primary) hypertension; E11.40 Type 2 diabetes mellitus with diabetic neuropathy, unspecified; F15.10 Other stimulant abuse, uncomplicated; Z98.890 Other specified postprocedural states
CPT/HCPCS: 82962; J2001

== ENCOUNTER 2020-02-01 23:29 | Emergency (ER) | payer MEDICAID ==
[~2020-02-01] VITALS: Ht 180.3 cm; Wt 84.8 kg
[2020-02-01 23:39] VITALS: BP 143/85; Ht 180.3 cm; Wt 84.8 kg
--- NOTE | 2020-02-02 00:39 | NUR ---
PT REFUSED ABG AT THIS TIME. MADE AWARE. WILL CONT TO MONITOR.
== END 2020-02-02 00:50 | disposition left against medical advice (07) ==
LOC: ED 23:29
DX: L98.499 Non-pressure chronic ulcer of skin of other sites with unspecified severity (principal); F19.10 Other psychoactive substance abuse, uncomplicated; I10 Essential (primary) hypertension; G43.909 Migraine, unspecified, not intractable, without status migrainosus; E11.40 Type 2 diabetes mellitus with diabetic neuropathy, unspecified
CPT/HCPCS: J2060; Q0092

== ENCOUNTER 2020-02-16 22:26 | Emergency (ER) | payer MEDICAID ==
[~2020-02-16] VITALS: Ht 180.3 cm; Wt 87.7 kg
[2020-02-16 22:46] VITALS: BP 136/82; Ht 180.3 cm; Wt 87.7 kg
[2020-02-17 00:08] LABS: AMPHETAMINE QUAL UR POSITIVE (See below)
== END 2020-02-17 00:04 | disposition left against medical advice (07) ==
LOC: ED 22:26
PROVIDERS: Emergency Medicine
DX: E11.65 Type 2 diabetes mellitus with hyperglycemia (principal); I10 Essential (primary) hypertension; E11.40 Type 2 diabetes mellitus with diabetic neuropathy, unspecified; G43.909 Migraine, unspecified, not intractable, without status migrainosus; Z59.0 Homelessness
CPT/HCPCS: 82962; G0480

== ENCOUNTER 2020-02-29 11:59 | Emergency (ER) | payer MEDICAID ==
[~2020-02-29] VITALS: Ht 180.3 cm; Wt 86.2 kg
[2020-02-29 12:13] VITALS: Ht 180.3 cm; Wt 86.2 kg
[2020-02-29 13:40] LABS: microscopic required? NO
[2020-02-29 14:00] LABS: BASOPHIL % 0.4 % (0-2)
[2020-02-29 14:05] LABS: UA SPECIFIC GRAVITY 1.025 (1.005-1.035); urine erythrocyte NEGATIVE (NEGATIVE)
[2020-02-29 14:06] LABS: ALBUMIN 4.3 g/dL (3.4-5.0); CALCIUM 9.5 mg/dL (8.5-10.1); CARBON DIOXIDE 27.2 mmol/L (21-32); CREATININE SERUM 2.3 mg/dL (0.7-1.3); MAGNESIUM 2.1 mg/dL (1.8-2.4); POTASSIUM SERUM 5.4 mmol/L (3.5-5.1)
[2020-02-29 14:07] LABS: TOTAL PROTEIN, SERUM 8.3 g/dL (6.4-8.2)
[2020-02-29 14:09] LABS: PLATELET COUNT 468 x10^3mcL (130-400)
[2020-02-29 17:18] VITALS: BP 162/88
== END 2020-02-29 17:18 | disposition left against medical advice (07) ==
LOC: ED 11:59
PROVIDERS: Emergency Medicine
DX: E11.65 Type 2 diabetes mellitus with hyperglycemia (principal)
CPT/HCPCS: 82962; J1815

== ENCOUNTER 2020-03-08 23:09 | Emergency (ER) | payer MEDICAID ==
[~2020-03-08] VITALS: Ht 180.3 cm; Wt 86.2 kg
[2020-03-08 23:14] VITALS: Ht 180.3 cm; Wt 86.2 kg
[2020-03-09 00:40] LABS: BASOPHIL % 0.6 % (0-2); PLATELET COUNT 460 x10^3mcL (130-400); RED CELL DISTRIBUTION WIDTH 15.5 % (11.5-14.5)
[2020-03-09 00:49] LABS: CALCIUM 9.3 mg/dL (8.5-10.1); CARBON DIOXIDE 26.1 mmol/L (21-32); CHLORIDE SERUM 102 mmol/L (98-107); CREATININE SERUM 1.4 mg/dL (0.7-1.3); GFR1 > 60 mL/min; GLUCOSE SERUM 163 mg/dL (74-106); POTASSIUM SERUM 3.4 mmol/L (3.5-5.1); SODIUM SERUM 141 mmol/L (136-145)
[2020-03-09 00:54] LABS: ALBUMIN 4.2 g/dL (3.4-5.0); ALKALINE PHOSPHATASE 103 U/L (46-116); ALT/SGPT 91 U/L (16-63); AST/SGOT 44 U/L (15-37); BILIRUBIN TOTAL 0.48 mg/dL (0.20-1.00); TOTAL PROTEIN, SERUM 7.9 g/dL (6.4-8.2)
[2020-03-09 03:02] VITALS: BP 138/88
== END 2020-03-09 03:00 | disposition home or self-care (01) ==
LOC: ED 23:09
PROVIDERS: Emergency Medicine
DX: E87.6 Hypokalemia (principal); R53.1 Weakness; I10 Essential (primary) hypertension; E11.9 Type 2 diabetes mellitus without complications; G43.909 Migraine, unspecified, not intractable, without status migrainosus
CPT/HCPCS: 82962

== ENCOUNTER 2020-03-09 11:24 | Emergency (ER) | payer MEDICAID ==
[~2020-03-09] VITALS: Ht 180.3 cm; Wt 86.2 kg
[2020-03-09 11:31] VITALS: Ht 180.3 cm; Wt 86.2 kg
[2020-03-09 14:22] LABS: BASOPHIL % 0.9 % (0-2)
[2020-03-09 14:26] LABS: CALCIUM 9.4 mg/dL (8.5-10.1); CARBON DIOXIDE 22.2 mmol/L (21-32); CREATININE SERUM 1.7 mg/dL (0.7-1.3); PLATELET COUNT 479 x10^3mcL (130-400); POTASSIUM SERUM 4.6 mmol/L (3.5-5.1); RED CELL DISTRIBUTION WIDTH 15.6 % (11.5-14.5)
[2020-03-09 14:31] LABS: ALBUMIN 4.2 g/dL (3.4-5.0); BILIRUBIN TOTAL 0.9 mg/dL (0.20-1.00); TOTAL PROTEIN, SERUM 7.7 g/dL (6.4-8.2)
[2020-03-09 15:37] VITALS: BP 144/78
== END 2020-03-09 15:37 | disposition home or self-care (01) ==
LOC: ED 11:24
PROVIDERS: Student in an Organized Health Care Education/Training Program
DX: E11.65 Type 2 diabetes mellitus with hyperglycemia (principal); I10 Essential (primary) hypertension; F15.20 Other stimulant dependence, uncomplicated; Z98.890 Other specified postprocedural states
CPT/HCPCS: 82962; J1815; J7030

== ENCOUNTER 2020-03-17 06:00 | Emergency (ER) | payer MEDICAID ==
[~2020-03-17] VITALS: Ht 180.3 cm; Wt 84.4 kg
[2020-03-17 06:21] VITALS: Ht 180.3 cm; Wt 84.4 kg
[2020-03-17 07:39] VITALS: BP 146/87
[2020-03-17 07:43] LABS: BASOPHIL % 0.6 % (0-2)
[2020-03-17 07:45] LABS: PLATELET COUNT 430 x10^3mcL (130-400); RED CELL DISTRIBUTION WIDTH 15.1 % (11.5-14.5)
--- NOTE | 2020-03-17 08:25 | NUR ---
PT REFUSED ABG, DR PEDERSON AWARE
[2020-03-17 08:58] LABS: ALKALINE PHOSPHATASE 86 U/L (46-116); ALT/SGPT 66 U/L (16-63); AST/SGOT 49 U/L (15-37); CALCIUM 8.9 mg/dL (8.5-10.1); CHLORIDE SERUM 94 mmol/L (98-107); CREATININE SERUM 1.5 mg/dL (0.7-1.3); GFR1 59 mL/min; LACTIC DEHYDROGENASE (LDH) 200 U/L (100-190); POTASSIUM SERUM 4.2 mmol/L (3.5-5.1); SODIUM SERUM 134 mmol/L (136-145); TOTAL PROTEIN, SERUM 7.5 g/dL (6.4-8.2)
[2020-03-17 08:59] LABS: C REACTIVE PROTEIN < 0.2 mg/dL (<=0.9)
[2020-03-17 09:01] LABS: GLUCOSE SERUM 491 mg/dL (74-106)
[2020-03-17 10:10] LABS: microscopic required? NO
[2020-03-17 10:16] LABS: UA SPECIFIC GRAVITY 1.015 (1.005-1.035); urine erythrocyte NEGATIVE (NEGATIVE)
[2020-03-17 10:31] LABS: AMPHETAMINE QUAL UR POSITIVE (See below)
== END 2020-03-17 09:37 | disposition left against medical advice (07) ==
LOC: ED 06:00
PROVIDERS: Specialist
DX: E11.65 Type 2 diabetes mellitus with hyperglycemia (principal); E86.0 Dehydration; E11.22 Type 2 diabetes mellitus with diabetic chronic kidney disease; N18.9 Chronic kidney disease, unspecified; F19.10 Other psychoactive substance abuse, uncomplicated; G43.909 Migraine, unspecified, not intractable, without status migrainosus; Z20.828 Contact with and (suspected) exposure to other viral communicable diseases
CPT/HCPCS: 82962; 83880; 87804; G0480; J1885; J7030; Q0092; U0003-CS

== ENCOUNTER 2020-03-17 16:13 | Emergency (ER) | payer MEDICAID ==
[~2020-03-17] VITALS: Ht 180.3 cm; Wt 86.2 kg
[2020-03-17 16:21] VITALS: Ht 180.3 cm; Wt 86.2 kg
[2020-03-17 16:51] VITALS: BP 167/95
== END 2020-03-17 16:51 | disposition home or self-care (01) ==
LOC: ED 16:13
DX: H92.03 Otalgia, bilateral (principal); I10 Essential (primary) hypertension; E11.9 Type 2 diabetes mellitus without complications; G43.909 Migraine, unspecified, not intractable, without status migrainosus; F17.210 Nicotine dependence, cigarettes, uncomplicated

== ENCOUNTER 2020-03-19 17:40 | Emergency (ER) | payer MEDICAID ==
[~2020-03-19] VITALS: Ht 180.3 cm; Wt 83.9 kg
[2020-03-19 18:11] VITALS: Ht 180.3 cm; Wt 83.9 kg
[2020-03-19 18:59] VITALS: BP 131/74
== END 2020-03-19 18:59 | disposition left against medical advice (07) ==
LOC: ED 17:40
DX: M95.12 Cauliflower ear, left ear (principal); E11.65 Type 2 diabetes mellitus with hyperglycemia; I10 Essential (primary) hypertension; G43.909 Migraine, unspecified, not intractable, without status migrainosus
CPT/HCPCS: 82962

== ENCOUNTER 2020-03-20 10:07 | Emergency (ER) | payer MEDICAID ==
[~2020-03-20] VITALS: Ht 180.3 cm; Wt 84.4 kg
[2020-03-20 10:45] VITALS: BP 123/90; Ht 180.3 cm; Wt 84.4 kg
== END 2020-03-20 12:58 | disposition home or self-care (01) ==
LOC: ED 10:07
DX: H60.01 Abscess of right external ear (principal); S00.431A Contusion of right ear, initial encounter; E11.65 Type 2 diabetes mellitus with hyperglycemia; I10 Essential (primary) hypertension; F17.210 Nicotine dependence, cigarettes, uncomplicated; F15.10 Other stimulant abuse, uncomplicated; F12.10 Cannabis abuse, uncomplicated; E11.40 Type 2 diabetes mellitus with diabetic neuropathy, unspecified; Z59.0 Homelessness; X58.XXXA Exposure to other specified factors, initial encounter; Y93.89 Activity, other specified; Y92.89 Other specified places as the place of occurrence of the external cause; Y99.8 Other external cause status
CPT/HCPCS: 82962; 99406; J2001

== ENCOUNTER 2020-03-22 20:12 | Emergency (ER) | payer MEDICAID ==
[~2020-03-22] VITALS: Ht 180.3 cm; Wt 81.3 kg
[2020-03-22 20:25] VITALS: BP 140/86; Ht 180.3 cm; Wt 81.3 kg
== END 2020-03-22 23:26 | disposition home or self-care (01) ==
LOC: ED 20:12
DX: S00.431A Contusion of right ear, initial encounter (principal); L08.9 Local infection of the skin and subcutaneous tissue, unspecified; E11.65 Type 2 diabetes mellitus with hyperglycemia; F19.10 Other psychoactive substance abuse, uncomplicated; F17.200 Nicotine dependence, unspecified, uncomplicated; I10 Essential (primary) hypertension; E11.40 Type 2 diabetes mellitus with diabetic neuropathy, unspecified; G43.909 Migraine, unspecified, not intractable, without status migrainosus; Z59.0 Homelessness; X58.XXXA Exposure to other specified factors, initial encounter; Y93.89 Activity, other specified; Y92.89 Other specified places as the place of occurrence of the external cause; Y99.8 Other external cause status
CPT/HCPCS: 82962; 99406; J1885

== ENCOUNTER 2020-03-31 05:34 | Emergency (ER) | payer MEDICAID ==
[~2020-03-31] VITALS: Ht 180.3 cm; Wt 86.2 kg
[2020-03-31 05:45] VITALS: Ht 180.3 cm; Wt 86.2 kg
[2020-03-31 06:41] VITALS: BP 151/93
== END 2020-03-31 06:41 | disposition left against medical advice (07) ==
LOC: ED 05:34
DX: Z53.21 Procedure and treatment not carried out due to patient leaving prior to being seen by health care provider (principal)
CPT/HCPCS: 82962

== ENCOUNTER 2020-04-30 23:25 | Emergency (ER) | payer MEDICAID ==
[~2020-04-30] VITALS: Ht 180.3 cm; Wt 85.7 kg
[2020-04-30 23:33] VITALS: Ht 180.3 cm; Wt 85.7 kg
[2020-05-01 06:24] VITALS: BP 130/74
== END 2020-05-01 06:25 | disposition home or self-care (01) ==
LOC: ED 23:25
DX: S09.90XA Unspecified injury of head, initial encounter (principal); H61.001 Unspecified perichondritis of right external ear; I10 Essential (primary) hypertension; E11.9 Type 2 diabetes mellitus without complications; W51.XXXA Accidental striking against or bumped into by another person, initial encounter; Y93.89 Activity, other specified; Y92.89 Other specified places as the place of occurrence of the external cause; Y99.8 Other external cause status
CPT/HCPCS: 82962; J1815; J7030

== ENCOUNTER 2020-05-13 07:18 | Emergency (ER) | payer MEDICAID, SELFPAY ==
[~2020-05-13] VITALS: Ht 180.3 cm; Wt 80.3 kg
[2020-05-13 07:38] VITALS: Ht 180.3 cm; Wt 80.3 kg
[2020-05-13 09:54] VITALS: BP 150/90
== END 2020-05-13 09:42 | disposition home or self-care (01) ==
LOC: ED 07:18
DX: R05 Cough (principal); R06.02 Shortness of breath; R09.89 Other specified symptoms and signs involving the circulatory and respiratory systems; Z20.828 Contact with and (suspected) exposure to other viral communicable diseases
CPT/HCPCS: J7030; U0003

== ENCOUNTER 2020-05-21 10:15 | Emergency (ER) | payer MEDICAID ==
[~2020-05-21] VITALS: Ht 180.3 cm; Wt 81.6 kg
[2020-05-21 11:03] VITALS: Ht 180.3 cm; Wt 81.6 kg
[2020-05-21 13:59] LABS: microscopic required? NO
[2020-05-21 14:13] LABS: urine erythrocyte NEGATIVE (NEGATIVE)
[2020-05-21 15:39] LABS: BASOPHIL % 0.6 % (0.2-1.5); PLATELET COUNT 320 x10^3mcL (152-348); RED CELL DISTRIBUTION WIDTH 13.8 % (12.1-16.2)
[2020-05-21 15:53] LABS: rbc morphology (normal/abnorm) NORMAL (NORMAL)
[2020-05-21 16:04] LABS: ALBUMIN 3.5 g/dL (3.4-5.0); ALKALINE PHOSPHATASE 97 U/L (46-116); ALT/SGPT 36 U/L (16-63); AST/SGOT 22 U/L (15-37); BILIRUBIN TOTAL 0.95 mg/dL (0.20-1.00); CARBON DIOXIDE 22.8 mmol/L (21-32); CHLORIDE SERUM 86 mmol/L (98-107); CREATININE SERUM 1.3 mg/dL (0.7-1.3); GFR1 > 60 mL/min; LIPASE 340 IU/L (73-393); POTASSIUM SERUM 4.4 mmol/L (3.5-5.1)
[2020-05-21 16:08] LABS: SODIUM SERUM 122 mmol/L (136-145)
[2020-05-21 16:24] VITALS: BP 125/71
[2020-05-21 16:52] LABS: GLUCOSE SERUM 785 mg/dL (74-106)
== END 2020-05-21 16:24 ==
LOC: ED 10:15
PROVIDERS: Emergency Medicine
DX: E11.65 Type 2 diabetes mellitus with hyperglycemia (principal); E87.1 Hypo-osmolality and hyponatremia; I10 Essential (primary) hypertension; G43.909 Migraine, unspecified, not intractable, without status migrainosus; E11.40 Type 2 diabetes mellitus with diabetic neuropathy, unspecified; F15.10 Other stimulant abuse, uncomplicated; Z87.898 Personal history of other specified conditions
CPT/HCPCS: 36600; 82962; J1815; J2405; J7030

== ENCOUNTER 2020-05-21 10:15 | Emergency (ER) | payer OTHER | END 2020-05-21 16:21 | LOC: ED 10:15 | DX: Z02.89 Encounter for other administrative examinations (principal) ==

== ENCOUNTER 2020-08-05 01:29 | Emergency (ER) | payer OTHER ==
[~2020-08-05] VITALS: Ht 177.8 cm; Wt 88.0 kg
[2020-08-05 01:48] VITALS: BP 161/104; Ht 177.8 cm; Wt 88.0 kg
[2020-08-05] MEDS ORDERED: KEF500 PO (02:10)
[2020-08-05] MEDS ORDERED: MOT600 PO (02:10)
[2020-08-05] MEDS ORDERED: CORTOS AU (02:15)
== END 2020-08-05 02:28 | disposition home or self-care (01) ==
LOC: ED 01:29
DX: H61.011 Acute perichondritis of right external ear (principal); I10 Essential (primary) hypertension; G43.909 Migraine, unspecified, not intractable, without status migrainosus; E11.40 Type 2 diabetes mellitus with diabetic neuropathy, unspecified
CPT/HCPCS: 82962